=== PATIENT | female | born 1950 | race Caucasian/White ===

== ENCOUNTER 2018-06-27 11:29 | Inpatient (IN) | payer MEDICARE ==
--- NOTE | 2018-06-27 12:02 | ED ---
General Adult HPI - General Chief complaint: Weakness Stated complaint: Weakness Source: patient Mode of arrival: ambulatory Limitations: no limitations - History of Present Illness Initial comments: Dictation was produced using [employer] dictation software. please excuse any grammatical, word or spelling errors. Chief Complaint: 68-year-old female presents with chief complaint of generalized weakness. History of Present Illness: Patient is 68-year-old female presents with generalized weakness. She states that her symptoms have started concurrently with coffee-ground stools. Patient states she has history of GI bleed in the past. Patient states she did require transfusions. Patient reports having had negative colonoscopy. Last incidence was possibly 4-5 years ago. Patient feels weak especially when she stands up to get around. 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 She states that she is unable to perform her duties secondary to her weakness. Patient denies any constitutional symptoms. Denies any pain complaints The ROS documented in this emergency department record has been reviewed and confirmed by me. Those systems with pertinent positive or negative responses have been documented in the HPI. All other systems are other negative and/or noncontributory. - Related Data Home Medications Medication Instructions Recorded Confirmed Acetaminophen/Diphenhydramine 2 tab PO HS 06/27/18 06/27/18 [Tylenol PM 500-25mg] Omeprazole 20 mg PO DAILY 06/27/18 06/27/18 Allergies Allergy/AdvReac Type Severity Reaction Status Date / Time morphine Allergy Vomiting Verified 06/27/18 12:11 Review of Systems ROS Statement: Those systems with pertinent positive or pertinent negative responses have been documented in the HPI. ROS Other: All systems not noted in ROS Statement are negative. Past Medical History Past Medical History: GERD/Reflux Additional Past Medical History / Comment(s): Low HGB History of Any Multi-Drug Resistant Organisms: None Reported Past Surgical History: No Surgical Hx Reported Past Psychological History: No Psychological Hx Reported Smoking Status: Never smoker Past Alcohol Use History: None Reported Past Drug Use History: None Reported General Exam - General Exam Comments Initial Comments: PHYSICAL EXAM: General Impression: Alert and oriented x3, not in acute distress HEENT: Normocephalic atraumatic, extra-ocular movements intact, pupils equal and reactive to light bilaterally, mucous membranes moist. Cardiovascular: Heart regular rate and rhythm, S1&S2 audible, no murmurs, rubs or gallops Chest: Lungs clear to auscultation bilaterally, no rhonchi, no wheeze, no rales Abdomen: Bowel sounds present, abdomen soft, non-tender, non-distended, no organomegaly Musculoskeletal: Pulses present and equal in all extremities, no peripheral edema Motor: Power 5/5 bilaterally, no focal deficits noted Neurological: CN II-XII grossly intact, no focal motor or sensory deficits noted Skin: Intact with no visualized rashes Psych: Normal affect and mood Limitations: no limitations Course Vital Signs 06/27/18 06/27/18 11:36 12:45 Temperature 98.2 F Pulse Rate 90 Pulse Rate [ 95 Sitting Stove Tender] Pulse Rate [ 92 Standing Stove Tender ] Pulse Rate [ 85 Supine Stove Tender] Respiratory 20 Rate Blood Pressure 127/71 Blood Pressure 146/76 [Left Arm Sitting] Blood Pressure 142/80 [Left Arm Standing] Blood Pressure 135/69 [Left Arm Supine] O2 Sat by Pulse 99 Oximetry Medical Decision Making - Medical Decision Making ED course: 78-year-old female presents with chief complaint of weakness and coffee-ground stools. Vital signs upon arrival shows heart rate of 90, rest of vital signs within acceptable limits.Lab data evaluation tape. Hemoglobin critical low at 6.0. There is elevated RDW. This suggest acute blood loss anemia. Coag panel unremarkable. Metabolic panel is unremarkable. Stool occult blood is positive. There was dark coffee-ground stool on rectal exam. There is strong clinical suspicion of upper GI bleed likely bleeding ulcer. Patient given Protonix bolus. She is scheduled for PID bolus Protonix. Patient given 1 unit of packed red blood cells. Patient be admitted to telemetry. GI put on consult. Pending urine studies. - Lab Data Result diagrams: 06/27/18 12:02 06/27/18 12:02 Lab Results 06/27/18 06/27/18 06/27/18 Range/Units 11:55 12:02 12:02 WBC 4.8 (3.8-10.6) k/uL RBC 3.12 L (3.80-5.40) m/uL Hgb 6.0 L* (11.4-16.0) gm/dL Hct 21.4 L (34.0-46.0) % MCV 68.6 L (80.0-100.0) fL MCH 19.3 L (25.0-35.0) pg MCHC 28.2 L (31.0-37.0) g/dL RDW 16.9 H (11.5-15.5) % Plt Count 252 (150-450) k/uL Neutrophils % 68 % Lymphocytes % 19 % Monocytes % 5 % Eosinophils % 5 % Basophils % 0 % Neutrophils # 3.2 (1.3-7.7) k/uL Lymphocytes # 0.9 L (1.0-4.8) k/uL Monocytes # 0.3 (0-1.0) k/uL Eosinophils # 0.2 (0-0.7) k/uL Basophils # 0.0 (0-0.2) k/uL Hypochromasia Marked Poikilocytosis Slight Anisocytosis Slight Microcytosis Marked PT (9.0-12.0) sec INR (<1.2) APTT (22.0-30.0) sec Sodium (137-145) mmol/L Potassium (3.5-5.1) mmol/L Chloride (98-107) mmol/L Carbon Dioxide (22-30) mmol/L Anion Gap mmol/L BUN (7-17) mg/dL Creatinine (0.52-1.04) mg/dL Est GFR (CKD-EPI)AfAm (>60 ml/min/1.73 sqM) Est GFR (CKD-EPI)NonAf (>60 ml/min/1.73 sqM) Glucose (74-99) mg/dL Calcium (8.4-10.2) mg/dL Total Bilirubin (0.2-1.3) mg/dL AST (14-36) U/L ALT (9-52) U/L Alkaline Phosphatase (38-126) U/L Total Creatine Kinase 46 (30-135) U/L CK-MB (CK-2) 0.9 (0.0-2.4) ng/mL CK-MB (CK-2) Rel Index 2.0 Troponin I <0.012 (0.000-0.034) ng/mL Total Protein (6.3-8.2) g/dL Albumin (3.5-5.0) g/dL Stool Occult Blood (Negative) Blood Type A Negative Blood Type Recheck No Antibody Screen NEGATIVE Crossmatch See Detail Spec Expiration Date 06/30/2018 [id number] 06/27/18 06/27/18 06/27/18 Range/Units 12:02 12:02 12:41 WBC (3.8-10.6) k/uL RBC (3.80-5.40) m/uL Hgb (11.4-16.0) gm/dL Hct (34.0-46.0) % MCV (80.0-100.0) fL MCH (25.0-35.0) pg MCHC (31.0-37.0) g/dL RDW (11.5-15.5) % Plt Count (150-450) k/uL Neutrophils % % Lymphocytes % % Monocytes % % Eosinophils % % Basophils % % Neutrophils # (1.3-7.7) k/uL Lymphocytes # (1.0-4.8) k/uL Monocytes # (0-1.0) k/uL Eosinophils # (0-0.7) k/uL Basophils # (0-0.2) k/uL Hypochromasia Poikilocytosis Anisocytosis Microcytosis PT 10.4 (9.0-12.0) sec INR 1.0 (<1.2) APTT 21.1 L (22.0-30.0) sec Sodium 138 (137-145) mmol/L Potassium 3.9 (3.5-5.1) mmol/L Chloride 108 H (98-107) mmol/L Carbon Dioxide 22 (22-30) mmol/L Anion Gap 8 mmol/L BUN 14 (7-17) mg/dL Creatinine 0.49 L (0.52-1.04) mg/dL Est GFR (CKD-EPI)AfAm >90 (>60 ml/min/1.73 sqM) Est GFR (CKD-EPI)NonAf >90 (>60 ml/min/1.73 sqM) Glucose 95 (74-99) mg/dL Calcium 9.0 (8.4-10.2) mg/dL Total Bilirubin 0.3 (0.2-1.3) mg/dL AST 30 (14-36) U/L ALT 22 (9-52) U/L Alkaline Phosphatase 67 (38-126) U/L Total Creatine Kinase (30-135) U/L CK-MB (CK-2) (0.0-2.4) ng/mL CK-MB (CK-2) Rel Index Troponin I (0.000-0.034) ng/mL Total Protein 5.9 L (6.3-8.2) g/dL Albumin 3.5 (3.5-5.0) g/dL Stool Occult Blood Positive H (Negative) Blood Type Blood Type Recheck Antibody Screen Crossmatch Spec Expiration Date Disposition Clinical Impression: Anemia, GI bleed Disposition: ADMITTED IP TO THIS [facility] Condition: Fair Referrals: None,Stated [Primary Care Provider] - 1-2 days Decision Time: 13:55
--- NOTE | 2018-06-27 12:28 | XR ---
EXAMINATION TYPE: XR chest 2V DATE OF EXAM: 06/27/2018 COMPARISON: Chest x-ray February 28, 2010. HISTORY: Dark stool and weakness. TECHNIQUE: Frontal and lateral views of the chest are obtained. FINDINGS: There is chronic parenchymal change without suspicious focal air space opacity, pleural ef fusion, or pneumothorax seen. The cardiac silhouette size is mildly enlarged on current study. The osseous structures are somewhat demineralized. Cholecystectomy clips are noted on lateral view IMPRESSION: Chronic parenchymal change and mild cardiomegaly without acute pulmonary process.
[2018-06-27 12:35] LABS: Prothrombin Time 10.4 sec (9.0-12.0)
[2018-06-27 12:36] LABS: Anisocytosis Slight; Basophils % (A) 0 %; Eosinophils # (A) 0.2 k/uL (0-0.7); Eosinophils % (A) 5 %; HCT 21.4 % (34.0-46.0); Hypochromasia Marked; Lymphocytes # (A) 0.9 k/uL (1.0-4.8); Lymphocytes % (A) 19 %; MCH 19.3 pg (25.0-35.0); MCHC 28.2 g/dL (31.0-37.0); MCV 68.6 fL (80.0-100.0); Microcytosis Marked; Monocytes # (A) 0.3 k/uL (0-1.0); Monocytes % (A) 5 %; Neutrophils # (A) 3.2 k/uL (1.3-7.7); Neutrophils % (A) 68 %; Platelet Count 252 k/uL (150-450); Poikilocytosis Slight; RBC 3.12 m/uL (3.80-5.40); RDW 16.9 % (11.5-15.5); WBC 4.8 k/uL (3.8-10.6)
[2018-06-27 12:39] LABS: ALT 22 U/L (9-52); AST 30 U/L (14-36); Albumin 3.5 g/dL (3.5-5.0); Alkaline Phosphatase 67 U/L (38-126); Anion Gap 8 mmol/L; Blood Urea Nitrogen 14 mg/dL (7-17); Carbon Dioxide 22 mmol/L (22-30); Chloride 108 mmol/L (98-107); Glucose 95 mg/dL (74-99); Potassium 3.9 mmol/L (3.5-5.1); Sodium 138 mmol/L (137-145); Total Bilirubin 0.3 mg/dL (0.2-1.3); Total Protein 5.9 g/dL (6.3-8.2)
[2018-06-27] MEDS ORDERED: PANTOPRAZOLE 40 MG/10 ML VIAL IVP ONE (12:43)
[2018-06-27 12:46] LABS: Creatine Kinase 46 U/L (30-135)
[2018-06-27 12:52] LABS: Partial Thromboplastin Time 21.1 sec (22.0-30.0)
[2018-06-27 12:59] LABS: Creatine Kinase MB 0.9 ng/mL (0.0-2.4); Troponin I <0.012 ng/mL (0.000-0.034)
[2018-06-27] MEDS ORDERED: NALOXONE 0.4 MG/ML 1 ML VIAL IV PRN (13:52)
[2018-06-27] MEDS: SODIUM CHLORIDE 0.9% 1,000 ML IV SCH ×2 (15:58→23:28)
[2018-06-27] MEDS: PANTOPRAZOLE 40 MG/10 ML VIAL IVP SCH (20:11)
--- NOTE | 2018-06-27 22:39 | P.HPIM ---
History of Present Illness H&P Date: 06/27/18 Chief Complaint: Generalized weakness Patient is a 68-year-old female with a known history of GERD presents ER with complaints of generalized weakness. Patient says that she has been drained lately. For the past one and half week patient noticed darker stools. Her symptoms are getting worse and this morning when she woke up she felt very lightheaded even with standing. Patient came to ER for evaluation. Patient states she has history of GI bleed in the past. Patient states she did require transfusions. Patient reports having had negative colonoscopy. Last incidence was possibly 4-5 years ago. Patient feels weak especially when she stands up to get around. 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 She states that she is unable to perform her duties secondary to her weakness. Patient denies any constitutional symptoms. Denies any pain complaints. No abdominal pain. No nausea vomiting. Patient does take Tylenol PM regularly. Patient used to take a leave before but currently denied any recent intake. No cough or sputum production. No fever no chills. Patient also noticed worsening bilateral leg swelling as well. Chest x-ray showed chronic parenchymal change and mild cardiomegaly with no acute process. EKG showed sinus rhythm. Hemoglobin 6.0 FOBT positive. Review of Systems Constitutional: Patient denies any fever or chills . Does have generalized weakness. No weight loss. Abdomen: Patient denied nausea vomiting and diarrhea and abdominal pain. Cardiovascular: Patient denies any chest pain or short of breath no palpitations. Patient does have leg swelling Respiratory: patient denied any cough is from production. Positive shortness of breath Neurologic: Patient denied any numbness or tingling headache. Musculoskeletal: Patient denies any complaints of joint swelling or deformity. Skin: Negative Psychiatric: Negative Endocrine: No heat or cold intolerance. No recent weight gain. Genitourinary: No dysuria or hematuria. All other 14 point ROS negative except the above Past Medical History Past Medical History: GERD/Reflux Additional Past Medical History / Comment(s): Low HGB History of Any Multi-Drug Resistant Organisms: None Reported Past Surgical History: No Surgical Hx Reported Past Psychological History: No Psychological Hx Reported Smoking Status: Never smoker Past Alcohol Use History: None Reported Past Drug Use History: None Reported - Past Family History Mother Family Medical History: Coronary Artery Disease (CAD) Additional Family Medical History / Comment(s): at age 58 from heart disease.was a smoker. Sister(s) Family Medical History: Diabetes Mellitus Additional Family Medical History / Comment(s): aunt had dm Father History Unknown: Yes Additional Family Medical History / Comment(s): pt has'nt seen father since she was 7 years old Medications and Allergies Home Medications Medication Instructions Recorded Confirmed Type Acetaminophen/Diphenhydramine 2 tab PO HS 06/27/18 06/27/18 History [Tylenol PM 500-25mg] Omeprazole 20 mg PO DAILY 06/27/18 06/27/18 History Allergies Allergy/AdvReac Type Severity Reaction Status Date / Time morphine Allergy Vomiting Verified 06/27/18 12:11 Physical Exam Vitals: Vital Signs Temp Pulse Pulse Pulse Pulse Resp BP 06/27/18 14:11 98.3 F 82 18 130/62 06/27/18 14:01 98.8 F 86 18 134/65 06/27/18 13:59 98.8 F 86 18 139/64 06/27/18 12:45 95 92 85 06/27/18 11:36 98.2 F 90 20 127/71 BP BP BP Pulse Ox 06/27/18 14:11 100 06/27/18 14:01 100 06/27/18 13:59 100 06/27/18 12:45 146/76 142/80 135/69 06/27/18 11:36 99 Intake and Output 06/26/18 06/27/18 06/27/18 22:59 06:59 14:59 Intake Total 0 Balance 0 Intake: Blood Product 0 Rc As-1 Unit 0 [id number] Other: Weight 70.307 kg PHYSICAL EXAMINATION: Patient is lying in the bed comfortably, no acute distress, awake alert and oriented.. HEENT: Normocephalic. Neck is supple. Pupils reactive. Nostrils clear. Oral cavity is moist. Ears reveal no drainage. Neck reveals no JVD, carotid bruits, or thyromegaly. CHEST EXAMINATION: Trachea is central. Symmetrical expansion. Lung june clear to auscultation and percussion. CARDIAC: Normal S1, S2 with no gallops. No murmurs ABDOMEN: Soft. Bowel sounds normal. No organomegaly. No abdominal bruits. Extremities: 2+ bilateral pedal edema. No clubbing or cyanosis Neurologically awake, alert, oriented x3 with well-coordinated movements. No focal deficits noted Skin: No rash or skin lesions. Psychiatric: Coperative. Nonsuicidal Musculoskeletal: No joint swelling or deformity. Normal range of motion. Results CBC & Chem 7: 06/27/18 12:02 06/27/18 12:02 Labs: Abnormal Lab Results - Last 24 Hours (Table) 06/27/18 06/27/18 06/27/18 Range/Units 11:55 12:02 12:02 RBC 3.12 L (3.80-5.40) m/uL Hgb 6.0 L* (11.4-16.0) gm/dL Hct 21.4 L (34.0-46.0) % MCV 68.6 L (80.0-100.0) fL MCH 19.3 L (25.0-35.0) pg MCHC 28.2 L (31.0-37.0) g/dL RDW 16.9 H (11.5-15.5) % Lymphocytes # 0.9 L (1.0-4.8) k/uL APTT (22.0-30.0) sec Chloride 108 H (98-107) mmol/L Creatinine 0.49 L (0.52-1.04) mg/dL Total Protein 5.9 L (6.3-8.2) g/dL Stool Occult Blood (Negative) Crossmatch See Detail 06/27/18 06/27/18 Range/Units 12:02 12:41 RBC (3.80-5.40) m/uL Hgb (11.4-16.0) gm/dL Hct (34.0-46.0) % MCV (80.0-100.0) fL MCH (25.0-35.0) pg MCHC (31.0-37.0) g/dL RDW (11.5-15.5) % Lymphocytes # (1.0-4.8) k/uL APTT 21.1 L (22.0-30.0) sec Chloride (98-107) mmol/L Creatinine (0.52-1.04) mg/dL Total Protein (6.3-8.2) g/dL Stool Occult Blood Positive H (Negative) Crossmatch Thrombosis Risk Factor Assmnt - DVT/VTE Prophylaxis DVT/VTE Prophylaxis: Mechanical Prophylaxis ordered Assessment and Plan Assessment: Acute blood loss anemia secondary to GI bleed likely upper Symptomatic anemia History of elevated Previous history of GI bleeding and transfusions GERD DVT prophylaxis with SCDs Rule out iron deficiency Plan: Patient will be transfused with 1 unit of PRBC. Continue to follow CBC. Continue with PPI IV. Continue with IV fluids and GI will be consulted. Will check iron profile. Further recommendations based on the clinical course. Time with Patient: Greater than 30
[2018-06-28 06:31] LABS: Anisocytosis Slight; Basophils % (A) 0 %; Eosinophils # (A) 0.1 k/uL (0-0.7); Eosinophils % (A) 2 %; HCT 23.4 % (34.0-46.0); Hypochromasia Marked; Lymphocytes # (A) 0.9 k/uL (1.0-4.8); Lymphocytes % (A) 25 %; MCH 20.8 pg (25.0-35.0); MCV 71.7 fL (80.0-100.0); Mean Platelet Volume 7.2; Microcytosis Marked; Monocytes # (A) 0.3 k/uL (0-1.0); Monocytes % (A) 7 %; Neutrophils # (A) 2.3 k/uL (1.3-7.7); Neutrophils % (A) 62 %; Platelet Count 193 k/uL (150-450); Poikilocytosis Marked; RBC 3.26 m/uL (3.80-5.40); RDW 18.9 % (11.5-15.5); WBC 3.7 k/uL (3.8-10.6)
[2018-06-28 07:01] LABS: HGB 6.8 gm/dL (11.4-16.0)
[2018-06-28] MEDS: SODIUM CHLORIDE 0.9% 1,000 ML IV SCH ×2 (10:08→20:26)
[2018-06-28] MEDS: PANTOPRAZOLE 40 MG/10 ML VIAL IVP SCH ×2 (10:08→20:00)
[2018-06-28 10:46] LABS: Iron Saturation 3.36 (12.00-45.00)
--- NOTE | 2018-06-28 10:59 | P.CONS ---
History of Present Illness - Reason for Consult Consult date: 06/27/18 Melena, anemia Requesting physician: Chiara Avalos - Chief Complaint Weakness - History of Present Illness The patient is a 68-year-old female with a medical history significant for reflux disease on omeprazole therapy who presents with complaints of approximately 2 weeks of weakness. The patient reports feeling weak and fatigued over the past 1-2 weeks and presented for further workup as she became lightheaded. The patient reports noting black stool over this same timeframe. She reports 3-4 dark black bowel movements daily. She denies any bright red blood per rectum. She reports some distention in the right upper quadrant of her abdomen but denies any david pain. She does take Aleve daily which she stopped 2 days ago when she was suspicious that she may be having a GI bleed. She also reports a sensitivity to gluten. She reports her last colonoscopy was approximately 6 years ago at which time she was told she had diverticulosis. On presentation she was found to have a hemoglobin of 6 with an MCV of 68.6. Review of Systems REVIEW OF SYSTEMS: CARDIO: Denies any chest pain or palpitations. PULMONARY: Denies any shortness of breath or wheezing. GENITOURINARY: No dysuria or hematuria. MUSCULOSKELETAL: Does report weakness prior to presentation. SKIN: Denies any new rashes or lesions, jaundice or pallor. PSYCHIATRIC: Denies any depression or anxiety. NEUROLOGY: Denies headache, denies any new focal deficits. EARS: No tinnitus, discharge or new hearing loss. NOSE: No discharge or congestion. EYES: No pain in eyes or change in vision. CONSTITUTIONAL: No recent weight loss. No fever, chills, night sweats. Past Medical History Past Medical History: GERD/Reflux Additional Past Medical History / Comment(s): Low HGB History of Any Multi-Drug Resistant Organisms: None Reported Past Surgical History: No Surgical Hx Reported Additional Past Surgical History / Comment(s): "a one removed from rt thumb, 3 hernia sx, colonoscopy,emy breast bx, emy lumpectomes,bowel resection stated "5 ft of intestines removed", rt ankle sx to repair break, emy cataracts removed- lens implants Past Anesthesia/Blood Transfusion Reactions: No Reported Reaction Additional Past Anesthesia/Blood Transfusion Reaction / Comm: blood transfusions in past-no reacation. Past Psychological History: No Psychological Hx Reported Smoking Status: Never smoker Past Alcohol Use History: None Reported Past Drug Use History: None Reported - Past Family History Mother Family Medical History: Coronary Artery Disease (CAD) Additional Family Medical History / Comment(s): at age 58 from heart disease.was a smoker. Sister(s) Family Medical History: Diabetes Mellitus Additional Family Medical History / Comment(s): aunt had dm Father History Unknown: Yes Additional Family Medical History / Comment(s): pt has'nt seen father since she was 7 years old Medications and Allergies Home Medications Medication Instructions Recorded Confirmed Type Acetaminophen/Diphenhydramine 2 tab PO HS 06/27/18 06/27/18 History [Tylenol PM 500-25mg] Omeprazole 20 mg PO DAILY 06/27/18 06/27/18 History Allergies Allergy/AdvReac Type Severity Reaction Status Date / Time morphine Allergy Vomiting Verified 06/27/18 12:11 Physical Exam Vitals: Vital Signs Temp Pulse Pulse Pulse Pulse Resp BP 06/27/18 23:44 97.9 F 90 16 06/27/18 23:43 85 83 84 18 06/27/18 20:00 85 83 84 18 06/27/18 16:06 98.5 F 79 18 06/27/18 15:16 98.3 F 79 18 136/64 06/27/18 15:08 98.3 F 79 18 136/64 06/27/18 14:41 98.6 F 83 18 142/80 06/27/18 14:11 98.3 F 82 18 130/62 06/27/18 14:01 98.8 F 86 18 134/65 06/27/18 13:59 98.8 F 86 18 139/64 06/27/18 12:45 95 92 85 06/27/18 11:36 98.2 F 90 20 127/71 BP BP BP Pulse Ox 06/27/18 23:44 128/68 99 06/27/18 23:43 06/27/18 20:00 140/60 140/62 138/59 97 06/27/18 16:06 130/68 98 06/27/18 15:16 100 06/27/18 15:08 100 06/27/18 14:41 100 06/27/18 14:11 100 06/27/18 14:01 100 12/28/18 13:59 100 06/27/18 12:45 146/76 142/80 135/69 06/27/18 11:36 99 Intake and Output 06/27/18 06/27/18 06/28/18 14:59 22:59 06:59 Intake Total 0 310 10 Balance 0 310 10 Intake: Oral 10 Blood Product 0 310 Rc As-1 Unit 0 310 [id number] Other: # Voids 1 3 Weight 70.307 kg 70.307 kg On physical examination, patient appears comfortable in no apparent distress. HEAD: Normocephalic, atraumatic. EYES: No scleral icterus. No conjunctival injection. MOUTH: No lesions, tongue midline. NECK: Trachea midline, no gross abnormalities. CHEST: Clear to auscultation with no wheezing or rhonchi appreciated. HEART: Regular rate and rhythm. ABDOMEN: Soft, obese. Bowel sounds are positive. No organomegaly. No guarding or rigidity. EXTREMITIES: No pedal edema. SKIN: No rashes, no jaundice. NEUROLOGIC: Alert and oriented x3. No focal deficits. Results CBC & Chem 7: 06/28/18 05:46 06/27/18 12:02 Labs: Abnormal Lab Results - Last 24 Hours (Table) 06/27/18 06/27/18 06/27/18 Range/Units 11:55 12:02 12:02 RBC 3.12 L (3.80-5.40) m/uL Hgb 6.0 L* (11.4-16.0) gm/dL Hct 21.4 L (34.0-46.0) % MCV 68.6 L (80.0-100.0) fL MCH 19.3 L (25.0-35.0) pg MCHC 28.2 L (31.0-37.0) g/dL RDW 16.9 H (11.5-15.5) % Lymphocytes # 0.9 L (1.0-4.8) k/uL APTT (22.0-30.0) sec Chloride 108 H (98-107) mmol/L Creatinine 0.49 L (0.52-1.04) mg/dL Total Protein 5.9 L (6.3-8.2) g/dL Stool Occult Blood (Negative) Crossmatch See Detail 12/28/18 12/28/18 Range/Units 12:02 12:41 RBC (3.80-5.40) m/uL Hgb (11.4-16.0) gm/dL Hct (34.0-46.0) % MCV (80.0-100.0) fL MCH (25.0-35.0) pg MCHC (31.0-37.0) g/dL RDW (11.5-15.5) % Lymphocytes # (1.0-4.8) k/uL APTT 21.1 L (22.0-30.0) sec Chloride (98-107) mmol/L Creatinine (0.52-1.04) mg/dL Total Protein (6.3-8.2) g/dL Stool Occult Blood Positive H (Negative) Crossmatch Assessment and Plan (1) Anemia, blood loss Narrative/Plan: Patient presenting with fall in hemoglobin likely secondary to upper GI bleed with complaints of melena on presentation. The patient was taking daily Aleve at home. Current Visit: Yes Status: Acute Code(s): D50.0 - IRON DEFICIENCY ANEMIA SECONDARY TO BLOOD LOSS (CHRONIC) SNOMED Code(s): 678846415 (2) GI bleed Narrative/Plan: Suspicion of upper GI bleed in the setting of melena and acute fall in hemoglobin. Current Visit: Yes Status: Acute Code(s): K92.2 - GASTROINTESTINAL HEMORRHAGE, UNSPECIFIED SNOMED Code(s): 75067203 Plan: Supportive care Okay for liquid diet Continue PPI twice daily Monitor hemoglobin and transfuse as needed Plan on upper endoscopy for further evaluation with timing to be determined Thank you for allowing us to participate in the care of this patient we will continue to follow
[2018-06-28] MEDS: SODIUM FERRIC GLUCONAT-SUCROSE 125 MG in SODIUM CHLORIDE 0.9% 100 ML IVPB SCH (17:59)
--- NOTE | 2018-06-28 21:48 | P.PN ---
Subjective Progress Note Date: 06/28/18 Principal diagnosis: Melena, anemia of acute blood loss Patient feeling better today status post transfusion. Tolerating liquids. Reports one dark bowel movement this morning. No abdominal pain. Objective - Vital Signs Vital signs: Vital Signs Temp 98.6 F 06/28/18 14:38 Pulse 90 06/28/18 20:00 Resp 16 06/28/18 20:00 BP 144/83 06/28/18 19:46 Pulse Ox 95 06/28/18 19:46 Intake & Output 06/28/18 06/28/18 06/29/18 06:59 18:59 06:59 Intake Total 10 1030 480 Balance 10 1030 480 Weight 70.5 kg 70.5 kg Intake: Intake, IV Titration 600 Amount Sodium Chloride 0.9% 1, 600 000 ml @ 100 mls/hr IV . Q10H [facility] Rx#:[id number] Oral 10 120 480 Blood Product 310 Rc As-1 Unit 310 [id number] Other: Voiding Method Toilet Toilet # Voids 1 1 2 - Exam On physical examination, patient appears comfortable in no apparent distress. HEAD: Normocephalic, atraumatic. EYES: No scleral icterus. No conjunctival injection. MOUTH: No lesions, tongue midline. NECK: Trachea midline, no gross abnormalities. CHEST: Clear to auscultation with no wheezing or rhonchi appreciated. HEART: Regular rate and rhythm. ABDOMEN: Soft, obese. Bowel sounds are positive. No organomegaly. No guarding or rigidity. EXTREMITIES: No pedal edema. SKIN: No rashes, no jaundice. NEUROLOGIC: Alert and oriented x3. No focal deficits. - Labs CBC & Chem 7: 06/28/18 05:46 06/27/18 12:02 Labs: Abnormal Lab Results - Last 24 Hours (Table) 06/27/18 06/28/18 06/28/18 Range/Units 11:55 05:46 05:46 WBC 3.7 L (3.8-10.6) k/uL RBC 3.26 L (3.80-5.40) m/uL Hgb 6.8 L* (11.4-16.0) gm/dL Hct 23.4 L (34.0-46.0) % MCV 71.7 L (80.0-100.0) fL MCH 20.8 L (25.0-35.0) pg MCHC 29.0 L (31.0-37.0) g/dL RDW 18.9 H (11.5-15.5) % Lymphocytes # 0.9 L (1.0-4.8) k/uL Iron 13 L (50-170) ug/dL Iron Saturation 3.36 L (12.00-45.00) Ferritin 7.0 L (10.0-291.0) ng/mL Crossmatch See Detail Assessment and Plan (1) Anemia, blood loss Narrative/Plan: Patient presenting with fall in hemoglobin likely secondary to upper GI bleed with complaints of melena on presentation. The patient was taking daily Aleve at home. Current Visit: Yes Status: Acute Code(s): D50.0 - IRON DEFICIENCY ANEMIA SECONDARY TO BLOOD LOSS (CHRONIC) SNOMED Code(s): 820481062 (2) GI bleed Narrative/Plan: Suspicion of upper GI bleed in the setting of melena and acute fall in hemoglobin. Current Visit: Yes Status: Acute Code(s): K92.2 - GASTROINTESTINAL HEMORRHAGE, UNSPECIFIED SNOMED Code(s): 53256031 Plan: Supportive care Okay for liquid diet Continue PPI twice daily Monitor hemoglobin and transfuse as needed Nothing by mouth after midnight for planned EGD in the morning Thank you for allowing us to participate in the care of this patient we will continue to follow
--- NOTE | 2018-06-28 23:36 | P.PN ---
Subjective Progress Note Date: 06/28/18 Principal diagnosis: Acute blood loss anemia secondary to GI bleed and symptomatic anemia Patient is a 68-year-old female with a known history of GERD presents ER with complaints of generalized weakness. Patient says that she has been drained lately. For the past one and half week patient noticed darker stools. Her symptoms are getting worse and this morning when she woke up she felt very lightheaded even with standing. Patient came to ER for evaluation. Patient states she has history of GI bleed in the past. Patient states she did require transfusions. Patient reports having had negative colonoscopy. Last incidence was possibly 4-5 years ago. Patient feels weak especially when she stands up to get around. 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 She states that she is unable to perform her duties secondary to her weakness. Patient denies any constitutional symptoms. Denies any pain complaints. No abdominal pain. No nausea vomiting. Patient does take Tylenol PM regularly. Patient used to take a leave before but currently denied any recent intake. No cough or sputum production. No fever no chills. Patient also noticed worsening bilateral leg swelling as well. Chest x-ray showed chronic parenchymal change and mild cardiomegaly with no acute process. EKG showed sinus rhythm. Hemoglobin 6.0 FOBT positive. 06/28/2018 Patient is symptomatically better compared to yesterday. Still feeling tired. Hemoglobin improved to 6.8 with 1 unit of PRBC transfusion. Patient is getting another unit of 1 PRBC. Otherwise his found have iron deficiency with low ferritin level. Patient will be started on iron infusion. GI is planning for EGD tomorrow. Otherwise no fever no chills. No abdominal pain. No diarrhea or dysuria. Current medications reviewed Objective - Vital Signs Vital signs: Vital Signs Temp 98.6 F 06/28/18 14:38 Pulse 90 06/28/18 20:00 Resp 16 06/28/18 20:00 BP 144/83 06/28/18 19:46 Pulse Ox 95 06/28/18 19:46 Intake & Output 06/28/18 06/28/18 06/29/18 06:59 18:59 06:59 Intake Total 10 1030 480 Balance 10 1030 480 Weight 70.5 kg 70.5 kg Intake: Intake, IV Titration 600 Amount Sodium Chloride 0.9% 1, 600 000 ml @ 100 mls/hr IV . Q10H [facility] Rx#:[id number] Oral 10 120 480 Blood Product 310 Rc As-1 Unit 310 [id number] Other: Voiding Method Toilet Toilet # Voids 1 1 2 - Exam PHYSICAL EXAMINATION: Patient is lying in the bed comfortably, no acute distress, awake alert and oriented.. HEENT: Normocephalic. Neck is supple. Pupils reactive. Nostrils clear. Oral cavity is moist. Ears reveal no drainage. Neck reveals no JVD, carotid bruits, or thyromegaly. CHEST EXAMINATION: Trachea is central. Symmetrical expansion. Lung june clear to auscultation and percussion. CARDIAC: Normal S1, S2 with no gallops. No murmurs ABDOMEN: Soft. Bowel sounds normal. No organomegaly. No abdominal bruits. Extremities: Bilateral 2+ edema. No clubbing or cyanosis Neurologically awake, alert, oriented x3 with well-coordinated movements. No focal deficits noted Skin: No rash or skin lesions. Psychiatric: Coperative. Nonsuicidal Musculoskeletal: No joint swelling or deformity. Normal range of motion. - Labs CBC & Chem 7: 06/28/18 05:46 06/27/18 12:02 Labs: Abnormal Lab Results - Last 24 Hours (Table) 06/27/18 06/28/18 06/28/18 Range/Units 11:55 05:46 05:46 WBC 3.7 L (3.8-10.6) k/uL RBC 3.26 L (3.80-5.40) m/uL Hgb 6.8 L* (11.4-16.0) gm/dL Hct 23.4 L (34.0-46.0) % MCV 71.7 L (80.0-100.0) fL MCH 20.8 L (25.0-35.0) pg MCHC 29.0 L (31.0-37.0) g/dL RDW 18.9 H (11.5-15.5) % Lymphocytes # 0.9 L (1.0-4.8) k/uL Iron 13 L (50-170) ug/dL Iron Saturation 3.36 L (12.00-45.00) Ferritin 7.0 L (10.0-291.0) ng/mL Crossmatch See Detail Assessment and Plan Assessment: Acute blood loss anemia secondary to GI bleed likely upper Symptomatic anemia Iron deficiency anemia Previous history of GI bleeding and transfusions GERD DVT prophylaxis with SCDs Rule out iron deficiency Plan: Patient was transfused with 2 units of PRBC.. Continue to follow CBC. Continue with PPI IV. Continue with IV fluids and GI will be consulted. Iron profile is consistent with iron deficiency.. Further recommendations based on the clinical course. Time with Patient: Greater than 30
[2018-06-29] MEDS: SODIUM CHLORIDE 0.9% 1,000 ML IV SCH ×2 (04:46→15:46)
[2018-06-29 06:12] LABS: Anisocytosis Moderate; Basophils % (A) 0 %; Eosinophils # (A) 0.1 k/uL (0-0.7); Eosinophils % (A) 2 %; HCT 25.5 % (34.0-46.0); HGB 7.5 gm/dL (11.4-16.0); Hypochromasia Marked; Lymphocytes # (A) 0.8 k/uL (1.0-4.8); Lymphocytes % (A) 17 %; MCH 21.9 pg (25.0-35.0); MCHC 29.5 g/dL (31.0-37.0); MCV 74.3 fL (80.0-100.0); Mean Platelet Volume 7.2; Microcytosis Moderate; Monocytes # (A) 0.3 k/uL (0-1.0); Monocytes % (A) 7 %; Neutrophils # (A) 3.4 k/uL (1.3-7.7); Neutrophils % (A) 71 %; Platelet Count 185 k/uL (150-450); Poikilocytosis Marked; RBC 3.43 m/uL (3.80-5.40); RDW 20.1 % (11.5-15.5); WBC 4.7 k/uL (3.8-10.6)
[2018-06-29 08:56] VITALS: RESP 16
[2018-06-29] MEDS ORDERED: IV FLUID CONTINUATION 1,000 ML IV ONE (09:00)
[2018-06-29] MEDS ORDERED: PROPOFOL 10 MG/ML 20 ML VIAL IV ONE (09:16)
[2018-06-29] MEDS ORDERED: LIDOCAINE 1% INJ 10MG/ML (20 ML MDV) ONE (09:16)
--- NOTE | 2018-06-29 09:54 | P.PCN ---
Date of Procedure: 06/29/18 Description of Procedure: BRIEF HISTORY: Patient is a 68-year-old, pleasant, female patient who presents to the hospital with complaints of increasing weakness and fatigue with associated melanotic stool. The patient does take omeprazole daily but reports that she had also been taking Aleve daily up until 2 days prior to presentation. She denies any prior history of peptic ulcer disease. She denies any gross bleeding with bowel movements. No abdominal pain.. PROCEDURE PERFORMED: Esophagogastroduodenoscopy with biopsy. PREOPERATIVE DIAGNOSIS: Anemia of acute blood loss, melena. ESTIMATED BLOOD LOSS: Minimal. IV sedation per anesthesia. PROCEDURE: After informed consent was obtained, the patient was brought into the endoscopy unit. IV sedation was administered by Anesthesia under continuous monitoring. Initially the Olympus GIF-190 video endoscope was inserted into the mouth. Esophagus intubated without any difficulty. It was gradually advanced into the stomach and duodenum and carefully examined. The bulb and the second part of the duodenum appeared normal. The scope at this time was withdrawn to the stomach, adequately insufflated with air, and the mucosa of the antrum, body , cardia and the fundus were carefully examined. a large 2.5-3 centimeter ulcerated mass suggestive of a gastrointestinal stromal tumor was present in the antrum, with multiple biopsies taken. The scope was then withdrawn into the esophagus. The GE junction was located at 35 cm from the incisors. The esophagus appeared normal. There were no erosions or ulcerations seen and the patient tolerated the procedure well. IMPRESSION: 1. Ulcerated gastric mass in the antrum, biopsied. RECOMMENDATIONS: The findings of this examination were discussed with the patient. Continue IV Protonix 40 mg twice daily. Okay for full liquid diet today. Await pathology from biopsies. If pathology is nondiagnostic patient will likely need referral for endoscopic ultrasound for further characterization of the mass, it appears to be consistent with a gastrointestinal stromal tumor but tissue pathology is necessary for definitive diagnosis. Follow up with gastroenterology in one to 2 weeks after discharge. Avoid NSAID medications.
[2018-06-29] MEDS: PANTOPRAZOLE 40 MG/10 ML VIAL IVP SCH (09:57)
[2018-06-29] MEDS: SODIUM FERRIC GLUCONAT-SUCROSE 125 MG in SODIUM CHLORIDE 0.9% 100 ML IVPB SCH (09:58)
[2018-06-29 15:37] VITALS: BP 141/68; PULSE 93; TEMP 97.9
--- NOTE | 2018-06-29 23:54 | P.DS ---
Providers Date of admission: 06/27/18 13:52 Expected date of discharge: 06/29/18 Attending physician: Chiara Avalos Consults: 06/27/18 13:53 Consult Physician Routine Consulting Provider: Sean Farrar Consult Reason/Comments: gi bleed, hgb 6.0 Do you want consulting provider notified?: Yes Primary care physician: Stated None Hospital Course: Discharge diagnosis Acute blood loss anemia secondary to upper GI bleed. Status post EGD showed antral gastric tumor Symptomatic anemia Iron deficiency anemia Previous history of GI bleeding and transfusions GERD DVT prophylaxis with SCDs Rule out iron deficiency Hospital course Patient is a 68-year-old female with a known history of GERD presents ER with complaints of generalized weakness. Patient says that she has been drained lately. For the past one and half week patient noticed darker stools. Her symptoms are getting worse and this morning when she woke up she felt very lightheaded even with standing. Patient came to ER for evaluation. Patient states she has history of GI bleed in the past. Patient states she did require transfusions. Patient reports having had negative colonoscopy. Last incidence was possibly 4-5 years ago. Patient feels weak especially when she stands up to get around. 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 She states that she is unable to perform her duties secondary to her weakness. Patient denies any constitutional symptoms. Denies any pain complaints. No abdominal pain. No nausea vomiting. Patient does take Tylenol PM regularly. Patient used to take a leave before but currently denied any recent intake. No cough or sputum production. No fever no chills. Patient also noticed worsening bilateral leg swelling as well. Chest x-ray showed chronic parenchymal change and mild cardiomegaly with no acute process. EKG showed sinus rhythm. Hemoglobin 6.0 FOBT positive. 06/28/2018 Patient is symptomatically better compared to yesterday. Still feeling tired. Hemoglobin improved to 6.8 with 1 unit of PRBC transfusion. Patient is getting another unit of 1 PRBC. Otherwise his found have iron deficiency with low ferritin level. Patient will be started on iron infusion. GI is planning for EGD tomorrow. Otherwise no fever no chills. No abdominal pain. No diarrhea or dysuria. 06/29/2018 Patient had EGD today which showed antral mass, possible stromal tumor. Hemoglobin stable otherwise. Patient really to follow up with GI clinic and pathology report and further recommendations based on the clinical course. Patient is otherwise stable to be discharged home. Discharge physical examination was done and vitals reviewed. Patient Condition at Discharge: Fair Plan - Discharge Summary Discharge Rx Participant: No New Discharge Prescriptions: Continue Omeprazole 20 mg PO DAILY Acetaminophen/Diphenhydramine [Tylenol PM 500-25mg] 2 tab PO HS Discharge Medication List Acetaminophen/Diphenhydramine [Tylenol PM 500-25mg] 2 tab PO HS 06/27/18 [ History] Omeprazole 20 mg PO DAILY 06/27/18 [History] Follow up Appointment(s)/Referral(s): None,Stated [Primary Care Provider] - 1-2 days Sean Farrar MD [STAFF PHYSICIAN] - 1 Week (offices closed, please call to make a follow up appointment ) Patient Instructions/Handouts: Gastrointestinal Bleeding (DC) Discharge Disposition: HOME SELF-CARE
[2018-06-30 11:34] LABS: Iron Saturation 56.52 (12.00-45.00)
== END 2018-06-29 16:14 | disposition home or self-care (01) | DRG 378 ==
LOC: EC 11:29 → 3SCARD 13:52
PROVIDERS: ADMIT Internal Medicine; ATTEND Internal Medicine
PROC: 30233N1 Transfusion of Nonautologous Red Blood Cells into Peripheral Vein, Percutaneous Approach (ICD-10-PCS; 2018-06-27)
PROC: 0DB78ZX Excision of Stomach, Pylorus, Via Natural or Artificial Opening Endoscopic, Diagnostic (ICD-10-PCS; principal; 2018-06-29 09:00)
DX: K25.4 Chronic or unspecified gastric ulcer with hemorrhage (principal); D62 Acute posthemorrhagic anemia; K57.90 Diverticulosis of intestine, part unspecified, without perforation or abscess without bleeding; K21.9 Gastro-esophageal reflux disease without esophagitis; Z96.1 Presence of intraocular lens; Z88.5 Allergy status to narcotic agent; Z82.49 Family history of ischemic heart disease and other diseases of the circulatory system; Z83.3 Family history of diabetes mellitus; Z98.42 Cataract extraction status, left eye; Z98.41 Cataract extraction status, right eye; Z79.899 Other long term (current) drug therapy
CPT/HCPCS: 36415; 43239; 71046; 80053; 82272; 82550; 82553; 82728; 83540; 83550; 84484; 85025; 85610; 85730; 86850; 86900; 86901; 86920; 88305; 93005; 96374; 99285

== ENCOUNTER → 2018-07-08 | Outpatient (CLI) | payer MEDICARE ==
[2018-07-08 13:49] LABS: Anisocytosis Moderate; HCT 28.9 % (34.0-46.0); HGB 8.5 gm/dL (11.4-16.0); Hypochromasia Marked; MCH 23.9 pg (25.0-35.0); MCHC 29.3 g/dL (31.0-37.0); Mean Platelet Volume 7.4; Microcytosis Moderate; Platelet Count 342 k/uL (150-450); Poikilocytosis Moderate; RBC 3.54 m/uL (3.80-5.40); RDW 23.6 % (11.5-15.5); WBC 4.9 k/uL (3.8-10.6)
[2018-07-08 13:53] LABS: MCV 81.7 fL (80.0-100.0)
[2018-07-08 15:19] LABS: Lymphocytes # (M) 1.08 k/uL (1.0-4.8); Monocytes # (M) 0.59 k/uL (0-1.0); Neutrophils # (M) 3.23 k/uL (1.3-7.7); Neutrophils % (M) 66 %; Nucleated Red Blood Cells 0 /100 WBC (0-0); Total Cells Counted 100
== END | disposition home or self-care (01) ==
LOC: LABWHC1 12:41
PROVIDERS: ATTEND Internal Medicine
DX: R19.09 Other intra-abdominal and pelvic swelling, mass and lump (principal)
CPT/HCPCS: 36415; 85025

== ENCOUNTER → 2018-07-24 | Outpatient (CLI) | payer MEDICARE ==
[2018-07-24 16:43] LABS: Blood Urea Nitrogen 14 mg/dL (7-17)
--- NOTE | 2018-07-25 07:30 | CT ---
EXAMINATION TYPE: CT ChestAbdPelvis w con DATE OF EXAM: 07/24/2018 INDICATION: Abdominal mass and pain. COMPARISON: None CT DLP: 1470 mGycm CONTRAST: Performed with Oral Contrast and with IV Contrast, patient injected with 100ml mL of Isovue 300. TECHNIQUE: Axial images at 5 mm thick sections. Reconstructed images in the coronal plane. Delayed images through the kidneys. FINDINGS: CT CHEST: Portion of the thyroid visualized is normal. No suspicious lung nodules or focal infiltrates are present. No enlarged mediastinal or hilar adenopathy is evident. The ascending aorta diameter at the level of the main pulmonary artery is 2.8 cm. The main pulmonary artery diameter at the bifurcation is 3.4 cm. Consider pulmonary hypertension CT ABDOMEN: There appears be a 4.9 cm mass within the anterior wall of the stomach. No suspicious abd ominal or pelvic adenopathy is evident. Liver: Normal Spleen: Normal Pancreas: Normal Adrenal glands: The adrenal glands are normal. Gallbladder: Surgically absent Kidneys: No masses are evident. No hydronephrosis is present. No cysts are present. Delayed images were obtained through the kidneys, which remain unremarkable. Aorta: Normal Inferior vena cava: Normal. CT PELVIS: Loops of bowel within the abdomen and pelvis are normal. There are loops of bowel which are incom pletely distended or lack oral contrast limiting their evaluation. Fecal debris is within the colon. Contrast extends to the ascending colon region near the level of the hepatic flexure. Appendix: Not identified. No suspicious tubular structures or inflammatory changes are evident. Urinary bladder: Normal. Genitourinary structures: Uterus and ovaries are not identified. Osseous structures: No suspicious lytic or sclerotic lesions. Degenerative disc changes are within th e scoliotic lumbar spine. There is a compensatory scoliosis in the upper thoracic spine. IMPRESSIONS: 1. 5 cm mass within the anterior stomach, correlate with location of the patient's reported abdominal mass. Additional workup is recommended. Neoplasm should be considered. 2. Abdominal mass is not otherwise identified.
== END | disposition home or self-care (01) ==
LOC: RADCTMAIN 16:02
PROVIDERS: ATTEND Internal Medicine Hematology & Oncology
DX: R19.06 Epigastric swelling, mass or lump (principal); Z88.5 Allergy status to narcotic agent
CPT/HCPCS: 82565; 84520; 71260; 74177; 36415; Q9967

== ENCOUNTER 2018-10-01 02:37 | Emergency (ER) | payer MEDICARE ==
[2018-10-01] MEDS ORDERED: SODIUM CHLORIDE 0.9% 1,000 ML IV STA (03:11)
[2018-10-01] MEDS ORDERED: ONDANSETRON 4 MG/2 ML VIAL IVP STA ×2 (03:11→04:29)
[2018-10-01] MEDS ORDERED: FAMOTIDINE 20 MG/2 ML VIAL IV STA (03:12)
--- NOTE | 2018-10-01 03:17 | ED ---
Nausea/Vomiting/Diarrhea HPI - General Chief complaint: Nausea/Vomiting/Diarrhea Stated complaint: Vomiting Time Seen by Provider: 10/01/18 02:57 Source: patient Mode of arrival: wheelchair - History of Present Illness Initial comments: This patient is a 68-year-old woman with history of partial gastrectomy performed September 22, who presents with complaint of having nausea and vomiting. The patient states that this procedure be performed at [facility] for treatment of a stromal tumor. She states that she had been discharged 3 days ago. She states that on Saturday night she did have some nausea and vomiting that resolved. She had recurrence of the nausea and vomiting yesterday in the morning. She states that she had probably 4 episodes of vomiting with a little bit of dark yellowish material. She denies seeing blood or coffee-ground. She states she has had a feeling of "acid stomach" located in the epigastric area that is been going on through yesterday afternoon and evening. A symptoms persisted into this morning she felt she should be evaluated here. Patient denies any chest symptoms, dyspnea, diaphoresis. No fever or chills. MD complaint: nausea, vomiting, abdominal pain -: hour(s) Description of Vomiting: food contents, bilious Associated Abdominal Pain: Yes Location: epigastric Radiation: none Severity: mild Quality: other (Burning) Consistency: constant Improves with: none Worsens with: none Associated Symptoms: denies other symptoms - Related Data Home Medications Medication Instructions Recorded Confirmed Acetaminophen/Diphenhydramine 2 tab PO HS 06/27/18 10/01/18 [Tylenol PM 500-25mg] Omeprazole 20 mg PO DAILY 06/27/18 10/01/18 Previous Rx's Medication Instructions Recorded Cephalexin [Keflex] 500 mg PO Q6HR 3 Days #12 cap 10/01/18 Ondansetron Odt [Zofran ODT] 4 mg PO Q8HR PRN #10 tab 10/01/18 Allergies Allergy/AdvReac Type Severity Reaction Status Date / Time morphine Allergy Vomiting Verified 06/27/18 12:11 Review of Systems ROS Statement: Those systems with pertinent positive or pertinent negative responses have been documented in the HPI. ROS Other: All systems not noted in ROS Statement are negative. Constitutional: Denies: fever, chills Respiratory: Denies: cough, dyspnea, hemoptysis Cardiovascular: Denies: chest pain, palpitations, orthopnea, syncope Gastrointestinal: Reports: abdominal pain, nausea, vomiting. Denies: diarrhea, hematemesis, melena, hematochezia Genitourinary: Denies: dysuria, hematuria Musculoskeletal: Denies: back pain Skin: Denies: rash Neurological: Denies: headache Past Medical History Past Medical History: GERD/Reflux Additional Past Medical History / Comment(s): Low HGB History of Any Multi-Drug Resistant Organisms: None Reported Past Surgical History: No Surgical Hx Reported Additional Past Surgical History / Comment(s): "a one removed from rt thumb, 3 hernia sx, colonoscopy,emy breast bx, emy lumpectomes,bowel resection stated "5 ft of intestines removed", rt ankle sx to repair break, emy cataracts removed- lens implants Past Anesthesia/Blood Transfusion Reactions: No Reported Reaction Additional Past Anesthesia/Blood Transfusion Reaction / Comment(s): blood transfusions in past-no reacation. Past Psychological History: No Psychological Hx Reported Smoking Status: Never smoker Past Alcohol Use History: None Reported Past Drug Use History: None Reported - Past Family History Mother Family Medical History: Coronary Artery Disease (CAD) Additional Family Medical History / Comment(s): at age 58 from heart disease.was a smoker. Sister(s) Family Medical History: Diabetes Mellitus Additional Family Medical History / Comment(s): aunt had dm Father History Unknown: Yes Additional Family Medical History / Comment(s): pt has'nt seen father since she was 7 years old General Exam General appearance: alert, in no apparent distress Head exam: Present: atraumatic, normocephalic Eye exam: Present: normal appearance ENT exam: Present: mucous membranes dry Neck exam: Present: normal inspection Respiratory exam: Present: normal lung sounds bilaterally. Absent: respiratory distress, wheezes, rales, rhonchi, stridor Cardiovascular Exam: Present: regular rate, normal rhythm, normal heart sounds. Absent: systolic murmur, diastolic murmur, rubs, gallop GI/Abdominal exam: Present: soft, other (The patient's surgical incision is clean dry and intact. There is no tenderness. No erythema or warmth). Absent: distended, tenderness, guarding, rebound, rigid, mass Extremities exam: Present: normal inspection, normal capillary refill. Absent: pedal edema, calf tenderness Back exam: Present: normal inspection. Absent: tenderness Neurological exam: Present: alert Skin exam: Present: warm, dry, intact, normal color. Absent: rash Course Vital Signs 10/01/18 10/01/18 10/01/18 02:55 03:29 04:26 Temperature 98.4 F 98.2 F Pulse Rate 102 H 75 82 Respiratory 20 18 18 Rate Blood Pressure 114/61 133/71 144/73 O2 Sat by Pulse 95 98 99 Oximetry 10/01/18 06:11 Temperature Pulse Rate 85 Respiratory 18 Rate Blood Pressure 126/65 O2 Sat by Pulse 95 Oximetry Medical Decision Making - Medical Decision Making Patient had marked improvement following medications and requests to go home. Her lab studies are benign. Her physical exam is benign. No evidence of postsurgical infection or complication. We discussed appropriate further care and follow-up as well as the return parameters. - Lab Data Result diagrams: 10/01/18 03:16 10/01/18 03:16 Lab Results 10/01/18 10/01/18 10/01/18 Range/Units 03:16 03:16 03:17 WBC 7.5 (3.8-10.6) k/uL RBC 5.30 (3.80-5.40) m/uL Hgb 13.6 (11.4-16.0) gm/dL Hct 44.8 (34.0-46.0) % MCV 84.6 (80.0-100.0) fL MCH 25.6 (25.0-35.0) pg MCHC 30.2 L (31.0-37.0) g/dL RDW 16.6 H (11.5-15.5) % Plt Count 290 (150-450) k/uL Neutrophils % 73 % Lymphocytes % 12 % Monocytes % 9 % Eosinophils % 4 % Basophils % 0 % Neutrophils # 5.5 (1.3-7.7) k/uL Lymphocytes # 0.9 L (1.0-4.8) k/uL Monocytes # 0.7 (0-1.0) k/uL Eosinophils # 0.3 (0-0.7) k/uL Basophils # 0.0 (0-0.2) k/uL Hypochromasia Slight Anisocytosis Slight Sodium 138 (137-145) mmol/L Potassium 4.4 (3.5-5.1) mmol/L Chloride 104 (98-107) mmol/L Carbon Dioxide 18 L (22-30) mmol/L Anion Gap 16 mmol/L BUN 10 (7-17) mg/dL Creatinine 0.39 L (0.52-1.04) mg/dL Est GFR (CKD-EPI)AfAm >90 (>60 ml/min/1.73 sqM) Est GFR (CKD-EPI)NonAf >90 (>60 ml/min/1.73 sqM) Glucose 108 H (74-99) mg/dL Calcium 9.8 (8.4-10.2) mg/dL Total Bilirubin 0.6 (0.2-1.3) mg/dL AST 48 H (14-36) U/L ALT 53 H (9-52) U/L Alkaline Phosphatase 111 (38-126) U/L Total Protein 6.6 (6.3-8.2) g/dL Albumin 3.8 (3.5-5.0) g/dL Amylase 87 (30-110) U/L Lipase 296 (23-300) U/L Urine Color Yellow Urine Appearance Cloudy H (Clear) Urine pH 5.5 (5.0-8.0) Ur Specific [place] 1.029 (1.001-1.035) Urine Protein 2+ H (Negative) Urine Glucose (UA) Negative (Negative) Urine Ketones 4+ H (Negative) Urine Blood Negative (Negative) Urine Nitrite Negative (Negative) Urine Bilirubin Negative (Negative) Urine Urobilinogen 3.0 (<2.0) mg/dL Ur Leukocyte Esterase Large H (Negative) Urine RBC 4 (0-5) /hpf Urine WBC 80 H (0-5) /hpf Ur Squamous Epith Cells 8 H (0-4) /hpf Urine Bacteria Rare H (None) /hpf Hyaline Casts 145 H (0-2) /lpf Urine Mucus Many H (None) /hpf Disposition Clinical Impression: Vomiting, Urinary tract infection Disposition: HOME SELF-CARE Condition: Good Instructions (If sedation given, give patient instructions): Acute Nausea and Vomiting (ED) Prescriptions: Cephalexin [Keflex] 500 mg PO Q6HR 3 Days #12 cap Ondansetron Odt [Zofran ODT] 4 mg PO Q8HR PRN #10 tab PRN Reason: Nausea Is patient prescribed a controlled substance at d/c from ED?: No Referrals: None,Stated [Primary Care Provider] - 1-2 days
[2018-10-01 03:29] VITALS: RESP 18
[2018-10-01 03:40] LABS: Anisocytosis Slight; Basophils % (A) 0 %; Eosinophils # (A) 0.3 k/uL (0-0.7); Eosinophils % (A) 4 %; HCT 44.8 % (34.0-46.0); HGB 13.6 gm/dL (11.4-16.0); Hypochromasia Slight; Lymphocytes # (A) 0.9 k/uL (1.0-4.8); Lymphocytes % (A) 12 %; MCH 25.6 pg (25.0-35.0); MCHC 30.2 g/dL (31.0-37.0); MCV 84.6 fL (80.0-100.0); Mean Platelet Volume 7.6; Monocytes # (A) 0.7 k/uL (0-1.0); Monocytes % (A) 9 %; Neutrophils # (A) 5.5 k/uL (1.3-7.7); Neutrophils % (A) 73 %; Platelet Count 290 k/uL (150-450); RDW 16.6 % (11.5-15.5); WBC 7.5 k/uL (3.8-10.6)
[2018-10-01 04:01] LABS: ALT 53 U/L (9-52); AST 48 U/L (14-36); Albumin 3.8 g/dL (3.5-5.0); Alkaline Phosphatase 111 U/L (38-126); Amylase 87 U/L (30-110); Anion Gap 16 mmol/L; Blood Urea Nitrogen 10 mg/dL (7-17); Calcium 9.8 mg/dL (8.4-10.2); Carbon Dioxide 18 mmol/L (22-30); Chloride 104 mmol/L (98-107); Glucose 108 mg/dL (74-99); Lipase 296 U/L (23-300); Potassium 4.4 mmol/L (3.5-5.1); Sodium 138 mmol/L (137-145); Total Bilirubin 0.6 mg/dL (0.2-1.3); Total Protein 6.6 g/dL (6.3-8.2)
[2018-10-01 04:13] LABS: Appearance,Urine Cloudy (Clear); Bacteria,Urine Rare /hpf; Bilirubin,Urine Negative (Negative); Blood,Urine Negative (Negative); Color,Urine Yellow; Glucose,Urine (UA) Negative (Negative); Hyaline Casts,Urine 145 /lpf (0-2); Ketones,Urine 4+ (Negative); Leukocyte Esterase,Urine Large (Negative); Mucus,Urine Many /hpf; Nitrite,Urine Negative (Negative); PH, Urine 5.5 (5.0-8.0); Protein,Urine 2+ (Negative); RBC,Urine 4 /hpf (0-5); Specific Gravity,Urine 1.029 (1.001-1.035); Squamous Epithelial Cell,Urine 8 /hpf (0-4); WBC,Urine 80 /hpf (0-5)
[2018-10-01] MEDS ORDERED: cefTRIAXone IN SWFI 1,000 MG/10 ML SYRINGE IVP STA (04:25)
[2018-10-01 04:28] VITALS: TEMP 98.2
[2018-10-01] MEDS ORDERED: HYDROmorphone 1 MG/ML 1 ML SYRINGE IVP STA (04:29)
[2018-10-01 06:13] VITALS: BP 126/65; PULSE 85
== END 2018-10-01 06:15 | disposition home or self-care (01) ==
LOC: EC 02:37
DX: N39.0 Urinary tract infection, site not specified (principal); K21.9 Gastro-esophageal reflux disease without esophagitis; Z79.899 Other long term (current) drug therapy; Z88.5 Allergy status to narcotic agent; Z90.3 Acquired absence of stomach [part of]
CPT/HCPCS: 36415; 80053; 82150; 83690; 85025; 81001; 87086; 99284; 96374; 96375 ×3; 96376; 96361; J2405; J0696; J1170

== ENCOUNTER 2018-10-02 21:39 | Inpatient (IN) | payer MEDICARE ==
[2018-10-02] MEDS ORDERED: SODIUM CHLORIDE 0.9% 1,000 ML IV STA ×2 (22:22)
[2018-10-02] MEDS ORDERED: ONDANSETRON 4 MG/2 ML VIAL IVP STA (22:22)
[2018-10-02] MEDS ORDERED: SODIUM CHLORIDE 0.9% 500 ML 500 ML IV STA (22:22)
--- NOTE | 2018-10-02 22:24 | ED ---
Nausea/Vomiting/Diarrhea HPI - General Chief complaint: Nausea/Vomiting/Diarrhea Stated complaint: Nausea Source: family, RN notes reviewed, old records reviewed Mode of arrival: ambulatory Limitations: no limitations - History of Present Illness Initial comments: This is a 66-year-old female the ER for evaluation of nausea vomiting diarrhea abdominal pain not feeling well dysuria. Patient was seen at Hospital and earlier today, a day and a half ago and has been unable to keep down medications since. Patient is a postop patient of [facility] where she was evaluate d for tumor surgery. Patient did have a calm. Postop course to do rehabilitation and since she's been home is unable to keep anything down. She also developed urinary tract infection and she is unable to keep her medication down. She is complains of nausea vomiting and decreased bowel movements currently MD complaint: nausea, vomiting -: week(s) Description of Vomiting: food contents, watery Description of Diarrhea: water Associated Abdominal Pain: Yes Location: diffuse Radiation: none Severity: moderate Severity scale (1-10): 4 Quality: aching Consistency: constant, intermittent Improves with: none Worsens with: eating Context: history of abdominal surgery Associated Symptoms: nausea/vomiting, weakness - Related Data Home Medications Medication Instructions Recorded Confirmed Acetaminophen/Diphenhydramine 2 tab PO HS 06/27/18 10/02/18 [Tylenol PM 500-25mg] Omeprazole 20 mg PO BID 06/27/18 10/02/18 Ranitidine HCl [Zantac] 150 mg PO BID PRN 10/02/18 10/02/18 Allergies Allergy/AdvReac Type Severity Reaction Status Date / Time morphine AdvReac Vomiting Verified 10/02/18 22:43 Review of Systems ROS Statement: Those systems with pertinent positive or pertinent negative responses have been documented in the HPI. ROS Other: All systems not noted in ROS Statement are negative. Past Medical History Past Medical History: GERD/Reflux Additional Past Medical History / Comment(s): Low HGB History of Any Multi-Drug Resistant Organisms: None Reported Past Surgical History: No Surgical Hx Reported Additional Past Surgical History / Comment(s): "a one removed from rt thumb, 3 hernia sx, colonoscopy,emy breast bx, emy lumpectomes,bowel resection stated "5 ft of intestines removed", rt ankle sx to repair break, emy cataracts removed- lens implants Past Anesthesia/Blood Transfusion Reactions: No Reported Reaction Additional Past Anesthesia/Blood Transfusion Reaction / Comment(s): blood transfusions in past-no reacation. Past Psychological History: No Psychological Hx Reported Smoking Status: Never smoker Past Alcohol Use History: None Reported Past Drug Use History: None Reported - Past Family History Mother Family Medical History: Coronary Artery Disease (CAD) Additional Family Medical History / Comment(s): at age 58 from heart disease.was a smoker. Sister(s) Family Medical History: Diabetes Mellitus Additional Family Medical History / Comment(s): aunt had dm Father History Unknown: Yes Additional Family Medical History / Comment(s): pt has'nt seen father since she was 7 years old General Exam Limitations: no limitations General appearance: alert, lethargic Head exam: Present: atraumatic, normocephalic, normal inspection Eye exam: Present: normal appearance, PERRL, EOMI. Absent: scleral icterus, conjunctival injection, periorbital swelling ENT exam: Present: normal exam, mucous membranes dry Neck exam: Present: normal inspection. Absent: tenderness, meningismus, lymphadenopathy Respiratory exam: Present: normal lung sounds bilaterally. Absent: respiratory distress, wheezes, rales, rhonchi, stridor Cardiovascular Exam: Present: regular rate, normal rhythm, normal heart sounds. Absent: systolic murmur, diastolic murmur, rubs, gallop, clicks GI/Abdominal exam: Present: soft, normal bowel sounds. Absent: distended, tenderness, guarding, rebound, rigid Extremities exam: Present: normal inspection, full ROM, normal capillary refill. Absent: tenderness, pedal edema, joint swelling, calf tenderness Back exam: Present: normal inspection Neurological exam: Present: alert, oriented X3, CN II-XII intact Psychiatric exam: Present: normal affect, normal mood Skin exam: Present: warm, dry, intact, normal color. Absent: rash Course Vital Signs 10/02/18 10/03/18 10/03/18 22:14 00:14 01:40 Temperature 98.3 F 99 F Pulse Rate 88 93 92 Respiratory 18 18 18 Rate Blood Pressure 126/78 150/73 151/74 O2 Sat by Pulse 98 96 97 Oximetry - Reevaluation(s) Reevaluation #1: 10/03/18 00:10 medical record and prior ED visit are reviewed Medical Decision Making - Medical Decision Making 68 female the ER for evaluation coming in for evaluation of nausea vomiting dehydration and UTI. We'll admit for the above - Lab Data Result diagrams: 10/03/18 02:52 10/03/18 02:52 Lab Results 10/02/18 10/02/18 10/02/18 Range/Units 22:47 22:47 22:59 WBC 6.8 (3.8-10.6) k/uL RBC 5.20 (3.80-5.40) m/uL Hgb 14.0 (11.4-16.0) gm/dL Hct 44.1 (34.0-46.0) % MCV 84.8 (80.0-100.0) fL MCH 26.8 (25.0-35.0) pg MCHC 31.6 (31.0-37.0) g/dL RDW 15.8 H (11.5-15.5) % Plt Count 392 (150-450) k/uL Neutrophils % 71 % Lymphocytes % 16 % Monocytes % 7 % Eosinophils % 4 % Basophils % 0 % Neutrophils # 4.8 (1.3-7.7) k/uL Lymphocytes # 1.1 (1.0-4.8) k/uL Monocytes # 0.5 (0-1.0) k/uL Eosinophils # 0.3 (0-0.7) k/uL Basophils # 0.0 (0-0.2) k/uL Hypochromasia Moderate Sodium 138 (137-145) mmol/L Potassium 4.4 (3.5-5.1) mmol/L Chloride 105 (98-107) mmol/L Carbon Dioxide 17 L (22-30) mmol/L Anion Gap 16 mmol/L BUN 9 (7-17) mg/dL Creatinine 0.42 L (0.52-1.04) mg/dL Est GFR (CKD-EPI)AfAm >90 (>60 ml/min/1.73 sqM) Est GFR (CKD-EPI)NonAf >90 (>60 ml/min/1.73 sqM) Glucose 88 (74-99) mg/dL Calcium 10.4 H (8.4-10.2) mg/dL Phosphorus 3.7 (2.5-4.5) mg/dL Magnesium 2.0 (1.6-2.3) mg/dL Total Bilirubin 0.4 (0.2-1.3) mg/dL AST 39 H (14-36) U/L ALT 47 (9-52) U/L Alkaline Phosphatase 120 (38-126) U/L Total Protein 7.3 (6.3-8.2) g/dL Albumin 4.3 (3.5-5.0) g/dL Lipase 357 H (23-300) U/L Urine Color Yellow Urine Appearance Clear (Clear) Urine pH 5.5 (5.0-8.0) Ur Specific Oakes 1.028 (1.001-1.035) Urine Protein 2+ H (Negative) Urine Glucose (UA) Negative (Negative) Urine Ketones 4+ H (Negative) Urine Blood Negative (Negative) Urine Nitrite Negative (Negative) Urine Bilirubin Negative (Negative) Urine Urobilinogen 2.0 (<2.0) mg/dL Ur Leukocyte Esterase Negative (Negative) Urine RBC <1 (0-5) /hpf Urine WBC 8 H (0-5) /hpf Ur Squamous Epith Cells 2 (0-4) /hpf Urine Bacteria Rare H (None) /hpf Hyaline Casts 56 H (0-2) /lpf Urine Mucus Occasional H (None) /hpf - Radiology Data Radiology results: report reviewed (CT head and pelvis negative for acute disease), image reviewed Disposition Clinical Impression: Vomiting, Urinary tract infection, Dehydration, Nausea & vomiting Disposition: ADMITTED IP TO [facility] Condition: Fair Is patient prescribed a controlled substance at d/c from ED?: No
[2018-10-02 22:57] LABS: Basophils % (A) 0 %; Eosinophils # (A) 0.3 k/uL (0-0.7); Eosinophils % (A) 4 %; HCT 44.1 % (34.0-46.0); Hypochromasia Moderate; Lymphocytes # (A) 1.1 k/uL (1.0-4.8); Lymphocytes % (A) 16 %; MCH 26.8 pg (25.0-35.0); MCHC 31.6 g/dL (31.0-37.0); MCV 84.8 fL (80.0-100.0); Mean Platelet Volume 8.3; Monocytes # (A) 0.5 k/uL (0-1.0); Monocytes % (A) 7 %; Neutrophils # (A) 4.8 k/uL (1.3-7.7); Neutrophils % (A) 71 %; Platelet Count 392 k/uL (150-450); RDW 15.8 % (11.5-15.5); WBC 6.8 k/uL (3.8-10.6)
[2018-10-02 23:24] LABS: ALT 47 U/L (9-52); AST 39 U/L (14-36); Albumin 4.3 g/dL (3.5-5.0); Alkaline Phosphatase 120 U/L (38-126); Anion Gap 16 mmol/L; Blood Urea Nitrogen 9 mg/dL (7-17); Calcium 10.4 mg/dL (8.4-10.2); Carbon Dioxide 17 mmol/L (22-30); Chloride 105 mmol/L (98-107); Glucose 88 mg/dL (74-99); Lipase 357 U/L (23-300); Phosphorus 3.7 mg/dL (2.5-4.5); Potassium 4.4 mmol/L (3.5-5.1); Sodium 138 mmol/L (137-145); Total Bilirubin 0.4 mg/dL (0.2-1.3); Total Protein 7.3 g/dL (6.3-8.2)
[2018-10-02] MEDS ORDERED: PANTOPRAZOLE 40 MG/10 ML VIAL IVP STA (23:38)
[2018-10-02 23:47] LABS: Appearance,Urine Clear (Clear); Bacteria,Urine Rare /hpf; Bilirubin,Urine Negative (Negative); Blood,Urine Negative (Negative); Color,Urine Yellow; Glucose,Urine (UA) Negative (Negative); Hyaline Casts,Urine 56 /lpf (0-2); Ketones,Urine 4+ (Negative); Leukocyte Esterase,Urine Negative (Negative); Mucus,Urine Occasional /hpf; Nitrite,Urine Negative (Negative); PH, Urine 5.5 (5.0-8.0); Protein,Urine 2+ (Negative); RBC,Urine <1 /hpf (0-5); Specific Gravity,Urine 1.028 (1.001-1.035); Squamous Epithelial Cell,Urine 2 /hpf (0-4); WBC,Urine 8 /hpf (0-5)
[2018-10-03] MEDS ORDERED: ONDANSETRON 4 MG/2 ML VIAL IVP PRN (00:43)
[2018-10-03] MEDS ORDERED: SODIUM CHLORIDE 0.9% 1,000 ML IV SCH (00:43)
--- NOTE | 2018-10-03 01:08 | CT ---
EXAM: CT Abdomen and Pelvis With Intravenous Contrast CLINICAL HISTORY: Reason: pain. Status post partial gastrectomy for tumor removal 09/22/2018. TECHNIQUE: Axial computed tomography images of the abdomen and pelvis with intravenous contrast. CTDI is 14.9 mGy and DLP is 592.8 mGy-cm. This CT exam was performed using one or more of the following dose reduction techniques: automated exposure control, adjustment of the mA and/or kV according to patient size, and/or use of iterative reconstruction technique. COMPARISON: CT abdomen-pelvis 07/24/2018 FINDINGS: Lung bases: Bibasilar subsegmental atelectasis or scarring. Heart: Mild cardiomegaly and minimal pericardial effusion. ABDOMEN: Liver: Hepatic fatty infiltration. 1.1 cm low-density lesion medial segment left lobe of liver adjacent to falciform fissure may reflect focal fatty infiltration although appears more prominent than on prior CT of 07/24/2018 and cannot exclude possibility of developing hepatic mass/metastatic disease. Gallbladder and bile ducts: Status post previous cholecystectomy. Mild intrahepatic and extrahepatic biliary dilatation not significant changed since 07/24/2018 which may reflect post cholecystectomy state. Pancreas: Pancreas is atrophic. Spleen: Spleen is unremarkable. Adrenals: No adrenal masses. Kidneys and ureters: No evidence of renal calculi or hydronephrosis. Stomach and bowel: Interval gastric postsurgical changes compatible with history of partial gastrectomy. Prominent fluid and gaseous distention of remaining stomach. Soft tissue thickening about distal stomach about region of gastric antrum and antropyloric region. Surgical suture line is present about this area. Surrounding soft tissue stranding. No focal fluid collection or abscess identified. Surrounding soft tissue stranding about the distal stomach and upper abdomen as well as mild stranding throughout the mesentery which may reflect postsurgical findings or possible edematous/inflammatory changes. Small and large bowel are nondilated. Sigmoid diverticulosis. No evidence of pneumoperitoneum. PELVIS: Appendix: No findings to suggest acute appendicitis. Bladder: Minimal gas within urinary bladder which may be related to recent bladder catheterization. Clinical correlation recommended. No bladder calculi. Reproductive: Status post hysterectomy. ABDOMEN and PELVIS: Intraperitoneal space: See above. Bones/joints: Multilevel lumbar spine degenerative changes. Vasculature: No abdominal aortic aneurysm. Lymph nodes: No lymphadenopathy identified. IMPRESSION: Interval gastric post surgical changes compatible with history of partial gastrectomy. Prominent fluid and gaseous distention of remaining stomach raising possibility of gastric outlet obstruction. Soft tissue thickening about distal stomach in region of antrum and antropyloric region with surrounding soft tissue stranding which may reflect post surgical or inflammatory changes. This extends adjacent to region of pancreas and pancreatitis would be differential possibility. Upper abdominal and diffuse mesenteric soft tissue stranding which may reflect postsurgical, edematous or inflammatory changes. No focal fluid collection, free air or abscess identified. Hepatic fatty infiltration with small 1.1 cm left hepatic low-density lesion which is of indeterminate etiology as discussed in body of report. Status post previous cholecystectomy with mild biliary dilatation. Minimal urinary bladder gas which may be related to recent bladder catheterization. Clinical correlation is recommended. <MYCVCSECTION> [employer] 10/03/18 01:21 Verify Receipt Verified receipt with [facility]- given to Dr. Montana on 10/03 01:20 (-04:00)
[2018-10-03] MEDS ORDERED: HYDROmorphone 0.5 MG/0.5 ML SYRINGE IVP STA (01:31)
[2018-10-03] MEDS ORDERED: HYDROmorphone 0.5 MG/0.5 ML SYRINGE IVP PRN (02:02)
[2018-10-03 03:36] LABS: Basophils % (A) 0 %; Eosinophils # (A) 0.1 k/uL (0-0.7); Eosinophils % (A) 3 %; HCT 37.6 % (34.0-46.0); HGB 11.7 gm/dL (11.4-16.0); Hypochromasia Marked; Lymphocytes # (A) 0.7 k/uL (1.0-4.8); Lymphocytes % (A) 14 %; MCH 26.7 pg (25.0-35.0); MCHC 31.1 g/dL (31.0-37.0); MCV 85.9 fL (80.0-100.0); Mean Platelet Volume 7.7; Monocytes # (A) 0.4 k/uL (0-1.0); Monocytes % (A) 8 %; Neutrophils # (A) 3.7 k/uL (1.3-7.7); Neutrophils % (A) 72 %; Platelet Count 277 k/uL (150-450); RBC 4.38 m/uL (3.80-5.40); RDW 15.7 % (11.5-15.5); WBC 5.1 k/uL (3.8-10.6)
[2018-10-03 04:10] LABS: Anion Gap 14 mmol/L; Blood Urea Nitrogen 7 mg/dL (7-17); Carbon Dioxide 15 mmol/L (22-30); Chloride 110 mmol/L (98-107); Glucose 86 mg/dL (74-99); Potassium 3.9 mmol/L (3.5-5.1); Sodium 139 mmol/L (137-145)
[2018-10-03] MEDS ORDERED: PANTOPRAZOLE 40 MG/10 ML VIAL IVP SCH (09:00)
[2018-10-03] MEDS ORDERED: HEPARIN SODIUM,PORCINE 5,000 UNIT/ML 1 ML VIAL SQ SCH (09:00)
[2018-10-03 14:29] VITALS: BP 135/81; PULSE 95; RESP 16; TEMP 97.9
--- NOTE | 2018-10-03 16:22 | HP ---
HISTORY AND PHYSICAL COMBINATION HISTORY AND PHYSICAL AND DISCHARGE SUMMARY: CHIEF COMPLAINTS: Abdominal pain and vomiting. HISTORY OF PRESENT ILLNESS: This 68-year-old woman with a past medical history of GI bleed, history of GERD, history of anemia, not being followed by any primary physician in the outpatient setting, was recently admitted with stromal tumor and bleeding to [facility]. Subsequently the patient was referred to [facility]. In [facility] the patient apparently had a partial gastrectomy and on September 20 of last month the patient came home and the patient was complaining of abdominal discomfort. The patient was unable to keep anything down. Patient was apparently vomiting also. She felt that she was constipated. The patient came to [facility] and was admitted for for further evaluation. CT scan showed possible gastric outlet obstruction. Gastroenterology is following the patient closely also. There is no history of any fever, rigor or chills. No history of headache, loss of consciousness, seizures at this time. PAST MEDICAL HISTORY: 1. History of GERD. 2. History of low hemoglobin. 3. History of stromal tumor, as mentioned earlier. MEDICATIONS: Medications prior to admission include: 1. Ranitidine 150 mg b.i.d. p.r.n. 2. Omeprazole 20 mg b.i.d. 3. Tylenol 2 tablets at bedtime. ALLERGIES: MORPHINE. FAMILY HISTORY: History of coronary artery disease in the family. SOCIAL HISTORY: No history of smoking. No history of alcohol intake. REVIEW OF SYSTEMS: ENT: No diminished hearing. No diminished vision. CARDIOVASCULAR SYSTEM: No angina, palpitations. RESPIRATORY SYSTEM: As mentioned earlier. GI: As mentioned earlier. : No dysuria or retention. NERVOUS SYSTEM: No numbness, weakness. ALLERGY/IMMUNOLOGY: No asthma, hayfever. MUSCULOSKELETAL: As mentioned earlier. HEMATOLOGY/ONCOLOGY: No history of anemia. ENDOCRINE: No history of diabetes. CONSTITUTIONAL: As mentioned earlier. DERMATOLOGY: Negative. RHEUMATOLOGY: Negative. PSYCHIATRY: Negative. PHYSICAL EXAMINATION: Patient is alert and oriented x3. Pulse is 57, blood pressure 115/70, respiration 17, temperature 98.6, pulse ox 94% on room air. HEENT: Conjunctivae normal. Oral mucosa moist. NECK: No jugular venous distention. No carotid bruit. No lymph node enlargement. CARDIOVASCULAR SYSTEM: S1, S2 muffled. No S3. No S4. RESPIRATORY SYSTEM: Breath sounds diminished at the bases. No rhonchi. No crackles. ABDOMEN: Soft. Mild diffuse discomfort with palpation. No guarding. No rigidity. No mass palpable. LEGS: No edema. No swelling. NERVOUS SYSTEM: Higher functions as mentioned earlier. Moves all 4 limbs. No focal motor or sensory deficit. LYMPHATICS: No lymph node palpable in neck, axillae or groin. SKIN: No ulcer, rash, bleeding. JOINTS: No active deforming arthropathy. LABS: WBC 5.1, hemoglobin 11.7, sodium 139, potassium 3.9, CO2 17. Lipase is 357. ASSESSMENT: 1. Abdominal pain, vomiting, status post surgery, possibly gastric outlet obstruction. 2. History of recent partial gastrectomy for stromal tumor. 3. History of gastrointestinal bleed secondary to stromal tumor. 4. History of blood-loss anemia. 5. Decreased carbon dioxide. 6. Increased lipase. 7. Possible mild urinary tract infection. 8. FULL CODE. RECOMMENDATIONS AND DISCUSSION: In this 68-year-old woman who presented with multiple medical issues, at this time I recommend to continue with the monitoring, current with current medications, continue with symptomatic treatment. Empiric antibiotics are initiated. Otherwise, the patient also has significant surgical issues and complications. I have discussed with Dr. Farrar, who recommended the patient to be transferred to [facility]. I discussed the case with the [facility] transfer team, the surgical fellow, who recommended the patient to be transferred to [facility]. See orders for details. The prognosis remains extremely guarded. manager summer and manager social are also working on the case. MMODL / IJN: [id number] /
--- NOTE | 2018-10-03 16:43 | P.PN ---
Subjective Progress Note Date: 10/03/18 Principal diagnosis: Abdominal pain Discussion with the patient and her . Recent surgery at for resection of gastric gist. Initially patient did well postop and presents to the hospital with complaints of nausea, and abdominal pain. Computed tomography scan suggestive of gastric outlet obstruction. Overall the patient is not having any further nausea or vomiting and reports abdominal pain is improved. The recommendation has been for transfer to for higher level of care. The patient is unwilling to take ambulance for alberto sfer at this time. It is felt that she is medically stable to take a private vehicle to the hospital for admission. Objective - Vital Signs Vital signs: Vital Signs Temp 97.9 F 10/03/18 14:27 Pulse 95 10/03/18 14:27 Resp 16 10/03/18 14:27 BP 135/81 10/03/18 14:27 Pulse Ox 98 10/03/18 14:27 Intake & Output 10/02/18 10/03/18 10/03/18 18:59 06:59 18:59 Intake Total 375 800 Balance 375 800 Weight 60.781 kg Intake: Intake, IV Titration 375 800 Amount Sodium Chloride 0.9% 1, 800 000 ml @ 100 mls/hr IV . Q10H STA Rx#:[id number] Sodium Chloride 0.9% 1, 375 000 ml @ 75 mls/hr IV . [id number] HUSSEIN Rx#:[id number] Other: # Voids 1 3 - Labs CBC & Chem 7: 10/03/18 02:52 10/03/18 02:52 Labs: Abnormal Lab Results - Last 24 Hours (Table) 10/02/18 10/02/18 10/02/18 Range/Units 22:47 22:47 22:59 RDW 15.8 H (11.5-15.5) % Lymphocytes # (1.0-4.8) k/uL Chloride (98-107) mmol/L Carbon Dioxide 17 L (22-30) mmol/L Creatinine 0.42 L (0.52-1.04) mg/dL Calcium 10.4 H (8.4-10.2) mg/dL AST 39 H (14-36) U/L Lipase 357 H (23-300) U/L Urine Protein 2+ H (Negative) Urine Ketones 4+ H (Negative) Urine WBC 8 H (0-5) /hpf Urine Bacteria Rare H (None) /hpf Hyaline Casts 56 H (0-2) /lpf Urine Mucus Occasional H (None) /hpf 10/03/18 10/03/18 Range/Units 02:52 02:52 RDW 15.7 H (11.5-15.5) % Lymphocytes # 0.7 L (1.0-4.8) k/uL Chloride 110 H (98-107) mmol/L Carbon Dioxide 15 L (22-30) mmol/L Creatinine 0.43 L (0.52-1.04) mg/dL Calcium (8.4-10.2) mg/dL AST (14-36) U/L Lipase (23-300) U/L Urine Protein (Negative) Urine Ketones (Negative) Urine WBC (0-5) /hpf Urine Bacteria (None) /hpf Hyaline Casts (0-2) /lpf Urine Mucus (None) /hpf Microbiology - Last 24 Hours (Table) 10/02/18 22:59 Urine Culture - Preliminary Urine,Voided
== END 2018-10-03 18:10 | disposition short-term general hospital (02) | DRG 381 ==
LOC: EC 21:39 → 4SSUR 23:45
PROVIDERS: ADMIT Hospitalist; ATTEND Hospitalist
DX: K31.1 Adult hypertrophic pyloric stenosis (principal); N39.0 Urinary tract infection, site not specified; E86.0 Dehydration; K21.9 Gastro-esophageal reflux disease without esophagitis; R74.8 Abnormal levels of other serum enzymes; Z85.028 Personal history of other malignant neoplasm of stomach; Z90.3 Acquired absence of stomach [part of]; Z88.5 Allergy status to narcotic agent; Z98.42 Cataract extraction status, left eye; Z98.41 Cataract extraction status, right eye; Z96.1 Presence of intraocular lens; Z82.49 Family history of ischemic heart disease and other diseases of the circulatory system; Z83.3 Family history of diabetes mellitus
CPT/HCPCS: 36415; 74177; 80048; 80053; 81001; 82150; 83690; 83735; 84100; 85025; 87086; 96361; 96365; 96375; 99285

== ENCOUNTER → 2020-04-27 | Outpatient (CLI) | payer MEDICARE ==
--- NOTE | 2020-04-27 17:07 | MR ---
EXAMINATION TYPE: MR brain wo/w con DATE OF EXAM: 04/27/2020 COMPARISON: MRI brain 05/15/2014. HISTORY: Vertigo and headaches TECHNIQUE: Multiplanar, multisequence images of the brain and brainstem is performed without and with IV contras t, utilizing 6 mL intravenous Gadavist . FINDINGS: Diffusion weighted images demonstrate no evidence of a recent infarct or other diffusion ab normality. Moderate scattered T2 FLAIR hyperintense foci throughout the subcortical and periventricul ar white matter are overall similar to 2013 MRI comparison. None of these T2 FLAIR intense foci demo nstrate enhancement or restricted diffusion. The ventricular system and cisternal spaces are normal i n size and appearance. The brain volume is age appropriate. Midline structures demonstrate normal morphology. The craniocervical junction appears within normal limits. Post contrast images demonstrate no abnormal enhancement. Persistent origin of the rig ht posterior cerebral artery. The dural venous sinuses appear patent. The visualized mastoid air cell s and sinuses are clear. The globes are grossly symmetric. IMPRESSION: 1. Moderate nonspecific white matter T2 FLAIR hyperintense foci are similar to 2013 MRI comparison. N o evidence of active demyelination or abnormal enhancement. Findings may represent sequela of chronic microvascular ischemic change.
== END | disposition home or self-care (01) ==
LOC: RADMRIMAIN 08:09
PROVIDERS: ATTEND Family Medicine
DX: R51.9 Headache, unspecified (principal)
CPT/HCPCS: 70553; A9585

== ENCOUNTER → 2020-05-24 | Outpatient (CLI) | payer MEDICARE ==
--- NOTE | 2020-05-25 13:06 | MM ---
Reason for exam: screening (asymptomatic). Last mammogram was performed 9 years and 10 months ago. History: Patient is postmenopausal, has breast cancer gene, and is nulliparous. Family history of breast cancer in maternal aunt. Excisional biopsy of the left breast. Excisional biopsy of the right breast. Physical Findings: A clinical breast exam by your physician is recommended on an annual basis and results should be correlated with mammographic findings. MG Screening Mammo w CAD Bilateral CC and MLO view(s) were taken. Prior study comparison: August 01, 2010, bilateral digital screening mammo w/CAD. March 15, 2009, bilateral diagnostic digital mammog. The breast tissue is heterogeneously dense. This may lower the sensitivity of mammography. There is no discrete abnormality. ASSESSMENT: Negative, BI-RAD 1 RECOMMENDATION: Routine screening mammogram of both breasts in 1 year.
== END | disposition home or self-care (01) ==
LOC: RADMAMWWP 13:42
PROVIDERS: ATTEND Family Medicine
DX: Z12.31 Encounter for screening mammogram for malignant neoplasm of breast (principal)
CPT/HCPCS: 77067

== ENCOUNTER → 2022-07-13 | Outpatient (CLI) | payer MEDICARE ==
--- NOTE | 2022-07-16 10:48 | MM ---
Reason for Exam: Screening (asymptomatic). Last mammogram was performed 2 year(s) and 2 month(s) ago. Patient History: Patient has no children. Hysterectomy at age 45. Postmenopausal. Excisional Biopsy on the Right side. Excisional Biopsy on the Left side. Maternal aunt had breast cancer, age 40. Risk Values: Destiny 5 year model risk: 2.7%. NCI Lifetime model risk: 6.5%. Prior Study Comparison: 03/15/2009 Bilateral Diagnostic Mammogram, [facility]. 08/01/2010 Bilateral Screening Mammogram, [facility]. 05/24/2020 Bilateral Screening Mammogram, [facility]. Tissue Density: The breast tissue is heterogeneously dense. This may lower the sensitivity of mammography. Findings: Analyzed By CAD. Pattern appears symmetrical and stable. No significant interval change is evident No suspicious groups of microcalcifications, spiculated or lobular masses, architectural distortion or other secondary signs of malignancy are mammographically apparent. Overall Assessment: Benign, BI-RAD 2 Management: Screening Mammogram of both breasts in 1 year. A negative mammogram report should not preclude additional follow up of suspicious palpable abnormalities. Patient should continue monthly self breast exam. A clinical breast exam by your physician is recommended on an annual basis and results should be correlated with mammographic findings. Electronically signed and approved by: Khanh Moss D.O. Radiologis
== END | disposition home or self-care (01) ==
LOC: RADMAMWWP 16:32
PROVIDERS: ATTEND Family Medicine
DX: Z12.31 Encounter for screening mammogram for malignant neoplasm of breast (principal); Z78.0 Asymptomatic menopausal state; Z80.3 Family history of malignant neoplasm of breast
CPT/HCPCS: 77063; 77067

== ENCOUNTER → 2023-03-18 | Outpatient (CLI) | payer MEDICARE ==
[~2023-03-18] MED LIST: SODIUM CHLORIDE 0.9% 500 ML 500 ML in EMPTY BAG 1 BAG IV PRN; ZOLEDRONIC ACID 5 MG in SODIUM CHLORIDE 0.9% 100 ML IV NR
[2023-03-18 10:58] VITALS: RESP 16; TEMP 97.5
== END ==
LOC: PROCWHC3 10:44
PROVIDERS: ATTEND Family Medicine
DX: M81.0 Age-related osteoporosis without current pathological fracture (principal)
CPT/HCPCS: 96365; J3489

== ENCOUNTER → 2023-07-25 | Outpatient (CLI) | payer MEDICARE ==
--- NOTE | 2023-07-25 20:26 | MM ---
Reason for Exam: Screening (asymptomatic). Last screening mammogram was performed 12 month(s) ago. Patient History: Menarche at age 11. Patient has no children. Hysterectomy at age 45. Postmenopausal. Excisional Biopsy on the Right side. Excisional Biopsy on the Left side. Maternal aunt had breast cancer, age 40. Risk Values: Destiny 5 year model risk: 2.9%. NCI Lifetime model risk: 6.7%. Prior Study Comparison: 08/01/2010 Bilateral Screening Mammogram, [facility]. 05/24/2020 Bilateral Screening Mammogram, [facility]. 07/13/2022 Bilateral MG 3D screening mammo w/cad, [facility]. Tissue Density: The breast tissue is heterogeneously dense. This may lower the sensitivity of mammography. Findings: Analyzed By CAD. Unchanged bilateral areas of asymmetric density. There is no suspicious group of microcalcifications or new suspicious mass in either breast. Overall Assessment: Benign, BI-RAD 2 Management: Screening Mammogram of both breasts in 1 year. . Patient should continue monthly self-breast exams. A clinical breast exam by your physician is recommended on an annual basis. This exam should not preclude additional follow-up of suspicious palpable abnormalities. Note on Destiny scores and lifetime risk: 1. A Destiny score greater than 3% is considered moderate risk. If this is the case, consider specialist referral to assess eligibility for a risk reducing agent. 2. If overall lifetime risk for the development of breast cancer is 20% or higher, the patient may qualify for future screening with alternating mammogram and breast MRI. Electronically signed and approved by: Robin Carr M.D. Radiologist
== END | disposition home or self-care (01) ==
LOC: RADMAMWWP 08:11
PROVIDERS: ATTEND Family Medicine
DX: Z12.31 Encounter for screening mammogram for malignant neoplasm of breast (principal); Z78.0 Asymptomatic menopausal state; Z80.3 Family history of malignant neoplasm of breast
CPT/HCPCS: 77067

== ENCOUNTER 2024-03-26 13:26 | Emergency (ER) | payer MEDICARE ==
[2024-03-26 13:40] VITALS: RESP 18; TEMP 97.9
[2024-03-26 14:07] LABS: Basophils % (A) 1 %; Eosinophils # (A) 0.2 k/uL (0-0.7); Eosinophils % (A) 3 %; HCT 39.9 % (34.0-46.0); HGB 13.3 gm/dL (11.4-16.0); Lymphocytes # (A) 1.4 k/uL (1.0-4.8); Lymphocytes % (A) 19 %; MCHC 33.2 g/dL (31.0-37.0); MCV 93.3 fL (80.0-100.0); Mean Platelet Volume 7.7; Monocytes # (A) 0.4 k/uL (0-1.0); Monocytes % (A) 6 %; Neutrophils # (A) 4.9 k/uL (1.3-7.7); Neutrophils % (A) 70 %; Platelet Count 191 k/uL (150-450); RBC 4.28 m/uL (3.80-5.40); RDW 14.3 % (11.5-15.5); WBC 7.1 k/uL (3.8-10.6)
[2024-03-26 14:23] LABS: ALT 18 U/L (4-34); AST 35 U/L (14-36); African American GFR (CKD) >90 (>60 ml/min/1.73 sqM); Albumin 3.8 g/dL (3.5-5.0); Alkaline Phosphatase 65 U/L (38-126); Anion Gap 5 mmol/L; Blood Urea Nitrogen 13 mg/dL (7-17); Calcium 9.2 mg/dL (8.4-10.2); Carbon Dioxide 23 mmol/L (22-30); Chloride 104 mmol/L (98-107); Glucose 109 mg/dL (74-99); Magnesium 1.9 mg/dL (1.6-2.3); Non-African American GFR(CKD) >90 (>60 ml/min/1.73 sqM); Potassium 4.5 mmol/L (3.5-5.1); Sodium 132 mmol/L (137-145); Total Bilirubin 0.6 mg/dL (0.2-1.3); Total Protein 5.9 g/dL (6.3-8.2)
--- NOTE | 2024-03-26 14:41 | ED ---
Weakness HPI - General Chief complaint: Weakness Stated complaint: weakness, cardiac Time Seen by Provider: 03/26/24 13:40 Source: EMS Mode of arrival: EMS Limitations: no limitations - History of Present Illness Initial comments: 73-year-old female who presents to the emergency department reporting dizziness. Patient was changing over the wash when she picked her head up and had sudden onset of dizziness. She also reports that she was weak all over.. She was having difficulty ambulating and called out to her friend who called EMS. She states that she has felt well otherwise. Her symptoms have completely resolved at this time. She never experienced any chest pain or difficulty breathing. No headache. No lateralizing weakness. No other alleviating, precipitating or modifying factors - Related Data Home Medications Medication Instructions Recorded Confirmed Calcium Carbonate [Calcium] 1,200 mg PO BID 03/26/24 03/26/24 Cyanocobalamin (Vitamin B-12) 1,000 mcg PO DAILY 03/26/24 03/26/24 [Vitamin B-12] Multivitamins, Thera [Multivitamin 1 tab PO DAILY 03/26/24 03/26/24 (formulary)] Allergies Allergy/AdvReac Type Severity Reaction Status Date / Time morphine AdvReac Vomiting Verified 03/26/24 14:05 Review of Systems ROS Statement: Those systems with pertinent positive or pertinent negative responses have been documented in the HPI. ROS Other: All systems not noted in ROS Statement are negative. Past Medical History Past Medical History: Cancer, GERD/Reflux Additional Past Medical History / Comment(s): Low HGB History of Any Multi-Drug Resistant Organisms: None Reported Past Surgical History: No Surgical Hx Reported Additional Past Surgical History / Comment(s): "a one removed from rt thumb, 3 hernia sx, colonoscopy,emy breast bx, emy lumpectomes,bowel resection stated "5 ft of intestines removed", rt ankle sx to repair break, emy cataracts removed- lens implants Past Anesthesia/Blood Transfusion Reactions: No Reported Reaction Additional Past Anesthesia/Blood Transfusion Reaction / Comment(s): blood transfusions in past-no reacation. Past Psychological History: No Psychological Hx Reported Smoking Status: Never smoker Past Alcohol Use History: None Reported Past Drug Use History: None Reported - Past Family History Mother Family Medical History: Coronary Artery Disease (CAD) Additional Family Medical History / Comment(s): at age 58 from heart disease.was a smoker. Sister(s) Family Medical History: Diabetes Mellitus Additional Family Medical History / Comment(s): aunt had dm Father History Unknown: Yes Additional Family Medical History / Comment(s): pt has'nt seen father since she was 7 years old General Exam Limitations: no limitations General appearance: alert, in no apparent distress Head exam: Present: atraumatic, normocephalic, normal inspection Eye exam: Present: normal appearance, PERRL, EOMI. Absent: scleral icterus, conjunctival injection, periorbital swelling ENT exam: Present: normal exam, mucous membranes moist Neck exam: Present: normal inspection. Absent: tenderness, meningismus, lymphadenopathy Respiratory exam: Present: normal lung sounds bilaterally. Absent: respiratory distress, wheezes, rales, rhonchi, stridor Cardiovascular Exam: Present: regular rate, normal rhythm, normal heart sounds. Absent: systolic murmur, diastolic murmur, rubs, gallop, clicks GI/Abdominal exam: Present: soft, normal bowel sounds. Absent: distended, tenderness, guarding, rebound, rigid Extremities exam: Present: normal inspection, full ROM, normal capillary refill. Absent: tenderness, pedal edema, joint swelling, calf tenderness Back exam: Present: normal inspection Neurological exam: Present: alert, oriented X3, CN II-XII intact Psychiatric exam: Present: normal affect, normal mood Skin exam: Present: warm, dry, intact, normal color. Absent: rash Course Vital Signs 03/26/24 03/26/24 03/26/24 13:27 14:02 16:52 Temperature 97.9 F Pulse Rate 78 88 Respiratory 18 18 18 Rate Blood Pressure 153/96 138/89 Blood Pressure 156/81 [Right Arm Sitting] Blood Pressure 144/76 [Right Arm Standing] Blood Pressure 156/83 [Right Arm Supine] O2 Sat by Pulse 98 98 98 Oximetry Medical Decision Making - Medical Decision Making Was pt. sent in by a medical professional or institution (, [facility], [employer]EL[employer], urgent care, hospital, or alf...) When possible be specific @ -No Did you speak to anyone other than the patient for history (EMS, parent, family, police, friend...)? What history was obtained from this source @ -Spoke with the patient's friend for history Did you review nursing and triage notes (agree or disagree)? Why? @ -I reviewed and agree with nursing and triage notes Were old charts reviewed (outside hosp., previous admission, EMS record, old EKG, old radiological studies, urgent care reports/EKG's, alf records)? Report findings @ -No old charts were reviewed Differential Diagnosis (chest pain, altered mental status, abdominal pain women, abdominal pain men, vaginal bleeding, weakness, fever, dyspnea, syncope, headache, dizziness, GI bleed, back pain, seizure, CVA, palpatations, mental he alth, musculoskeletal)? @ -Differential Dizziness: Benign paroxysmal positional Vertigo, Meniere's disease, otitis media, acoustic neuroma, vertebrobasilar insufficiency, cerebellar stroke, encephalitis, hypovolemic, arrhythmia, coronary artery syndrome, anemia, this is not meant to be an all-inclusive list EKG interpreted by me (3pts min.). @ -Yes and demonstrates sinus rhythm with rate of 70. CT interval 154. QRS 93. QTc of 399. No acute ST segment elevations or depressions. Bigeminy X-rays interpreted by me (1pt min.). @ -None done CT interpreted by me (1pt min.). @ -CT brain was considered however patient completely asymptomatic at this point U/S interpreted by me (1pt. min.). @ -None done What testing was considered but not performed or refused? (CT, X-rays, U/S, labs)? Why? @ -None What meds were considered but not given or refused? Why? @ -None Did you discuss the management of the patient with other professionals (professionals i.e. , PA, [employer] DEVELOPER, lab, RT, psych nurse, social service manager, lopper, teacher, immigration services officer, director case management)? Give summary @ -No Was smoking cessation discussed for >3mins.? @ -No Was critical care preformed (if so, how long)? @ -No Were there social determinants of health that impacted care today? How? (Homelessness, low income, unemployed, alcoholism, drug addiction, transportation, low edu. Level, literacy, decrease access to med. care, fpc, rehab)? @ -No Was there de-escalation of care discussed even if they declined (Discuss DNR or withdrawal of care, Hospice)? DNR status @ -No What co-morbidities impacted this encounter? (DM, HTN, Smoking, COPD, CAD, Cancer, CVA, ARF, Chemo, Hep., AIDS, mental health diagnosis, sleep apnea, morbid obesity)? @ -None Was patient admitted / discharged? Hospital course, mention meds given and route, prescriptions, significant lab abnormalities, going to OR and other pertinent info. @ -Upon arrival patient seen and evaluated in room 8. Thorough history and physical exam was performed. Twelve-lead EKG was obtained. Laboratory studies are conducted. Patient is completely asymptomatic at this time. I did discuss further evaluation however patient is satisfied with her current workup and all symptoms have resolved. Patient be discharged home at this time. Instructed to follow-up with primary care doctor. Return for any new or worsening symptoms. Patient agreeable plan was discharged in stable condition Undiagnosed new problem with uncertain prognosis? @ -No Drug Therapy requiring intensive monitoring for toxicity (Heparin, Nitro, Insulin, Cardizem)? @ -No Were any procedures done? @ -No Diagnosis/symptom? @ -Acute vertigo Acute, or Chronic, or Acute on Chronic? @ -Acute Uncomplicated (without systemic symptoms) or Complicated (systemic symptoms)? @ -Complicated Side effects of treatment? @ -No Exacerbation, Progression, or Severe Exacerbation? @ -No Poses a threat to life or bodily function? How? (Chest pain, USA, PA, pneumonia, PE, COPD, DKA, ARF, appy, cholecystitis, CVA, Diverticulitis, Homicidal, Suicidal, threat to staff... and all critical care pts) @ -No - Lab Data Result diagrams: 03/26/24 13:59 03/26/24 13:59 Lab Results 03/26/24 03/26/24 03/26/24 Range/Units 13:59 13:59 13:59 WBC 7.1 (3.8-10.6) k/uL RBC 4.28 (3.80-5.40) m/uL Hgb 13.3 (11.4-16.0) gm/dL Hct 39.9 (34.0-46.0) % MCV 93.3 (80.0-100.0) fL MCH 31.0 (25.0-35.0) pg MCHC 33.2 (31.0-37.0) g/dL RDW 14.3 (11.5-15.5) % Plt Count 191 (150-450) k/uL MPV 7.7 Neutrophils % 70 % Lymphocytes % 19 % Monocytes % 6 % Eosinophils % 3 % Basophils % 1 % Neutrophils # 4.9 (1.3-7.7) k/uL Lymphocytes # 1.4 (1.0-4.8) k/uL Monocytes # 0.4 (0-1.0) k/uL Eosinophils # 0.2 (0-0.7) k/uL Basophils # 0.0 (0-0.2) k/uL Sodium 132 L (137-145) mmol/L Potassium 4.5 (3.5-5.1) mmol/L Chloride 104 (98-107) mmol/L Carbon Dioxide 23 (22-30) mmol/L Anion Gap 5 mmol/L BUN 13 (7-17) mg/dL Creatinine 0.46 L (0.52-1.04) mg/dL Est GFR (CKD-EPI)AfAm >90 (>60 ml/min/1.73 sqM) Est GFR (CKD-EPI)NonAf >90 (>60 ml/min/1.73 sqM) Glucose 109 H (74-99) mg/dL Plasma Lactic Acid Eligio (0.7-2.0) mmol/L Calcium 9.2 (8.4-10.2) mg/dL Magnesium 1.9 (1.6-2.3) mg/dL Total Bilirubin 0.6 (0.2-1.3) mg/dL AST 35 (14-36) U/L ALT 18 (4-34) U/L Alkaline Phosphatase 65 (38-126) U/L Troponin I (0.000-0.034) ng/mL Total Protein 5.9 L (6.3-8.2) g/dL Albumin 3.8 (3.5-5.0) g/dL Urine Color Colorless Urine Appearance Clear (Clear) Urine pH 6.5 (5.0-8.0) Ur Specific [place] 1.007 (1.001-1.035) Urine Protein Negative (Negative) Urine Glucose (UA) Negative (Negative) Urine Ketones Negative (Negative) Urine Blood Negative (Negative) Urine Nitrite Negative (Negative) Urine Bilirubin Negative (Negative) Urine Urobilinogen <2.0 (<2.0) mg/dL Ur Leukocyte Esterase Negative (Negative) 03/26/24 03/26/24 Range/Units 13:59 13:59 WBC (3.8-10.6) k/uL RBC (3.80-5.40) m/uL Hgb (11.4-16.0) gm/dL Hct (34.0-46.0) % MCV (80.0-100.0) fL MCH (25.0-35.0) pg MCHC (31.0-37.0) g/dL RDW (11.5-15.5) % Plt Count (150-450) k/uL MPV Neutrophils % % Lymphocytes % % Monocytes % % Eosinophils % % Basophils % % Neutrophils # (1.3-7.7) k/uL Lymphocytes # (1.0-4.8) k/uL Monocytes # (0-1.0) k/uL Eosinophils # (0-0.7) k/uL Basophils # (0-0.2) k/uL Sodium (137-145) mmol/L Potassium (3.5-5.1) mmol/L Chloride (98-107) mmol/L Carbon Dioxide (22-30) mmol/L Anion Gap mmol/L BUN (7-17) mg/dL Creatinine (0.52-1.04) mg/dL Est GFR (CKD-EPI)AfAm (>60 ml/min/1.73 sqM) Est GFR (CKD-EPI)NonAf (>60 ml/min/1.73 sqM) Glucose (74-99) mg/dL Plasma Lactic Acid Eligio 1.5 (0.7-2.0) mmol/L Calcium (8.4-10.2) mg/dL Magnesium (1.6-2.3) mg/dL Total Bilirubin (0.2-1.3) mg/dL AST (14-36) U/L ALT (4-34) U/L Alkaline Phosphatase (38-126) U/L Troponin I <0.012 (0.000-0.034) ng/mL Total Protein (6.3-8.2) g/dL Albumin (3.5-5.0) g/dL Urine Color Urine Appearance (Clear) Urine pH (5.0-8.0) Ur Specific [place] (1.001-1.035) Urine Protein (Negative) Urine Glucose (UA) (Negative) Urine Ketones (Negative) Urine Blood (Negative) Urine Nitrite (Negative) Urine Bilirubin (Negative) Urine Urobilinogen (<2.0) mg/dL Ur Leukocyte Esterase (Negative) Disposition Clinical Impression: Dizziness Disposition: HOME SELF-CARE Condition: Stable Instructions (If sedation given, give patient instructions): Dizziness (ED) Additional Instructions: Follow-up with your primary care doctor. They may want to do some carotid Dopplers. Return should you have any new or worsening symptoms. Is patient prescribed a controlled substance at d/c from ED?: No Referrals: Dave Conley DO [Primary Care Provider] - 1-2 days Time of Disposition: 15:17
[2024-03-26] MEDS: SODIUM CHLORIDE 0.9% 1,000 ML IV ONE (14:52)
[2024-03-26 15:28] LABS: Appearance,Urine Clear (Clear); Bilirubin,Urine Negative (Negative); Blood,Urine Negative (Negative); Color,Urine Colorless; Glucose,Urine (UA) Negative (Negative); Ketones,Urine Negative (Negative); Leukocyte Esterase,Urine Negative (Negative); Nitrite,Urine Negative (Negative); PH, Urine 6.5 (5.0-8.0); Protein,Urine Negative (Negative); Specific Gravity,Urine 1.007 (1.001-1.035); Urobilinogen,Urine <2.0 mg/dL (<2.0)
[2024-03-26 16:52] VITALS: BP 138/89; PULSE 88
== END 2024-03-26 16:52 | disposition home or self-care (01) ==
LOC: EC 13:26
DX: R42 Dizziness and giddiness (principal)
CPT/HCPCS: 36415; 80053; 81003; 83605; 83735; 84484; 85025; 93005; 96360; 96361; 99285

== ENCOUNTER → 2024-05-26 | Outpatient (CLI) | payer MEDICARE ==
[2024-05-26 15:14] LABS: Blood Urea Nitrogen 8.9 mg/dL (9.0-27.0); Carbon Dioxide 25.3 mmol/L (21.6-31.8); Chloride 101 mmol/L (96-109); Potassium 4.5 mmol/L (3.5-5.5); Sodium 135 mmol/L (135-145)
[2024-05-26 16:39] LABS: HCT 41.9 % (37.2-46.3); HGB 13.3 g/dL (12.0-15.0); MCH 29.4 pg (27.0-32.0); MCHC 31.7 g/dL (32.0-37.0); MCV 92.7 FL (80.0-97.0); Mean Platelet Volume 10.6 FL (9.5-12.2); NRBC Per 100 WBC 0 X 10*3/uL (0.00-0.01); Platelet Count 215 X 10*3/uL (140-440); RBC 4.52 X 10*6/uL (4.10-5.20); RDW 14.4 % (11.5-14.5); WBC 7.06 X 10*3/uL (4.50-10.00)
== END | disposition home or self-care (01) ==
LOC: LABWHC1 08:53
PROVIDERS: ATTEND Internal Medicine
DX: Z01.812 Encounter for preprocedural laboratory examination (principal); R94.31 Abnormal electrocardiogram [ECG] [EKG]
CPT/HCPCS: 36415; 80051; 82565; 84520; 85027